=== PATIENT | female | born 1945 | race Caucasian/White ===

== ENCOUNTER 2022-10-25 22:05 | Observation (INO) | payer OTHER, SELFPAY ==
[2022-10-25] VITALS (18 sets, daily range): BP systolic 156–195; BP diastolic 71–90; BMI 29.7
[2022-10-25] MEDS: TYLENOL 1000 MG PO (15:10)
[2022-10-25] MEDS: NORMOSOL-R 1000 IV ×2 (15:10→20:53)
[2022-10-25 15:15] LABS: Hemoglobin 7.5 g/dL (12.0-16.0); Mean Corp Hgb Conc. 28.8 g/dL (33.0-37.0); Mean Corpuscular Hgb 18.8 pg (27.0-31.0); Mean Corpuscular Volume 65.2 fL (81.0-99.0); Mean Platelet Volume 9.2 fL (7.4-10.4); Platelet Count 228 10^3/uL (130-400); Red Blood Cell Count 3.99 10^6/uL (4.20-5.40); Red Cell Dist. Width 19.1 % (11.5-14.5); White Blood Cell Count 3.5 10^3/uL (4.8-10.8)
[2022-10-25 15:33] LABS: Blood Urea Nitrogen 22 mg/dl (7-17); Calcium 8.6 mg/dl (8.4-10.2); Carbon Dioxide 20 mmol/L (22-30); Chloride 109 mmol/L (98-107); Estimated Creatinine Clearance 54 ml/min; Glomerular Filtration Rate > 60.0; Glucose 93 mg/dl (70-99); Potassium 4.2 mmol/L (3.5-5.1); Sodium 138 mmol/L (135-145)
[2022-10-25] MEDS: CLEOCIN 50 IV (16:30)
[2022-10-25] MEDS: ZOFRAN 4 MG IV (18:52)
[2022-10-25] MEDS: XANAX 0.5 MG PO (19:53)
--- NOTE | 2022-10-25 20:43 | HPS.HSE ---
Family Physician
-
Family Physician: INTERVIEWE UNKNOWN - PT NOT
Chief Complaint
-
anxiety
History of Present Illness
77-year-old female with past medical history of anxiety, chronic back pain, constipation, underwent ORIF for left greater tuberosity proximal humerus fracture today. After the surgery she was noted to be hypertensive with shortness of breath. She
was going to be discharged but is staying overnight because of the symptoms. Her systolic blood pressure was as high as 190. Patient states that she did not take her Xanax this morning because of the surgery. While patient was being transferred
from the stretcher to the operating table she developed chest pain. This had subsided after the surgery. Patient states she does have a history of panic attacks. She states that her left lower extremity has been swollen for a while and she saw
vascular who thought this was due to varicose veins.
Medical History
Past Medical History
Past Medical History: Reports Other (anxiety, chronic back pain, constipation, underwent ORIF)
Past Surgical History: Reports None
Social History
Tobacco: Non-smoker
Alcohol: None
Drug: None
Family History
Family History: Not pertinent
Allergies / Home Medications
Allergies reflects when Allergies were last updated in [facility].
Home Medications with original date entered in [facility]
Allergy/Medication List:
Allergies
Allergy/AdvReac Type Severity Reaction Status Date / Time
ibuprofen Allergy Nausea Verified 10/25/22 14:59
Iodinated Contrast Media Allergy HIVES, Verified 10/25/22 14:59
THROAT
SWELLING
Penicillins Allergy HIVES, Verified 10/25/22 14:59
THROAT
SWELLING
shellfish derived Allergy HIVES, Verified 10/25/22 14:59
THROAT
SWELLING
Home Medications
alprazolam 0.5 mg tablet 0.5 mg PO TID Mental Health/Anxiety 07/09/21
citalopram 40 mg tablet 40 mg PO DAILY Mental Health/Anxiety 07/09/21
famotidine 40 mg tablet 40 mg PO DAILYPRN PRN gi/stomach issues 07/09/21
linaclotide 290 mcg capsule (Linzess) 290 mcg PO DAILY GI 07/09/21
oxycodone 15 mg tablet 15 mg PO Q6HPRN PRN moderate to severe pain 07/09/21
docusate sodium 100 mg capsule 100 mg PO BID #60 caps 07/11/21
metoprolol tartrate 25 mg tablet 25 mg PO DAILY 07/11/21
polyethylene glycol 3350 17 gram oral powder packet 17 grams PO DAILY #30 packets 07/11/21
Review of Systems
-
History Source: Patient
A 12 point ROS was completed and negative except as noted: Yes
Constitutional: Reports No Symptoms
EENT: Reports No Symptoms
Respiratory: Reports No Symptoms
Cardiac: Reports No Symptoms
Abdomen/GI: Reports No Symptoms
: Reports No Symptoms
Musculoskeletal: Reports No Symptoms
Skin: Reports No Symptoms
Neurological: Reports No Symptoms
Endocrine: Reports No Symptoms
Hematologic/Lymphatic: Reports No Symptoms
Psych: Reports No Symptoms
Physical Exam
Vital Signs
Vital Signs
Temp Pulse Resp BP Pulse Ox
98.5 F 56 18 176/76 100
10/25/22 18:30 10/25/22 20:30 10/25/22 20:30 10/25/22 20:30 10/25/22 20:30
Physical Exam
General: Well Developed, Well Nourished and No Apparent Distress
HEENT: NormoCephalic, Moist mucous membranes and Atraumatic
Respiratory: Clear
Cardiac: S1/S2 and Regular Rhythm; No Murmur or Rub
GI: Soft, Non Tender, Non Distended and Normal Bowel Sounds; No Organomegaly
Rectal: Deferred by Provider
Musculoskeletal: No Clubbing, No Cyanosis and No Edema
Skin: No Rash
Neuro: Nonfocal/grossly intact
Laboratory Results
-
10/25/22 15:05
10/25/22 15:05
Data Reviewed
-
Lab Data: Labs Reviewed by me
Old Records: Reviewed
Impression/Plan
-
IMPRESSION:
PLAN:
# Hypertensive urgency after ORIF of left upper extremity today likely due to anxiety/IV fluids
-Symptoms improving once patient given Xanax.
-EKG shows sinus bradycardia with premature atrial complexes,
-Recheck EKG and troponin
-Check chest x-ray
-Continue metoprolol
-As needed hydralazine
# Left greater tuberosity proximal humerus fracture status post ORIF
-Tylenol and oxycodone for pain
-Orthopedics following
Left lower extremity swelling
-Can follow-up with vascular as outpatient
# Chronic microcytic anemia
-Hemoglobin 7.5 from 7.9 in June
History of anxiety
-Continue alprazolam, citalopram
Chronic back pain
Constipation
-Continue stool softeners
-Continue Linzess
Full code
DVT prophylaxis-SCDs
regular diet
[2022-10-25 22:02] LABS: Troponin I < 0.012 ng/ml
--- NOTE | 2022-10-25 22:15 | PTCARENOTE ---
Telephone report received from PREBOARDER Claribel @21:00, update received at 21:50 that patient was just bladder scanned for 510mls and catheterized for 400mls; patient arrived in bed from PACU @22:00 with IVF infusing; telemetry placed on patient;
admission history obtained by LUIS Butts.
[2022-10-25] MEDS: DILAUDID 0.25 MG IV (23:42)
[2022-10-25] MEDS: CLEOCIN 56 MG IV (23:51)
[2022-10-26] MEDS: ROXICODONE 10 MG PO ×3 (02:03→11:38)
[2022-10-26 03:00] VITALS: BP 136/65
[2022-10-26] MEDS: PEPCID 40 MG PO (05:47)
[2022-10-26 05:53] LABS: % Basophils 0.3 % (0-2); % Immature Granulocytes 0.5 % (0-0.5); % Lymphocytes 15.1 % (20.5-51.1); % Monocytes 7.6 % (1.7-9.3); % Neutrophils 76.5 % (42.2-75.2); Absolute Monocytes 0.5 10^3/uL (0.1-0.6); Absolute Neutrophils 4.9 10^3/uL (1.4-6.5); Hematocrit 24.6 % (37.0-47.0); Hemoglobin 7.2 g/dL (12.0-16.0); Mean Corp Hgb Conc. 29.3 g/dL (33.0-37.0); Mean Corpuscular Hgb 18.9 pg (27.0-31.0); Mean Corpuscular Volume 64.6 fL (81.0-99.0); Mean Platelet Volume 9.4 fL (7.4-10.4); Nucleated Red Blood Cells % 0 %; Platelet Count 213 10^3/uL (130-400); Red Blood Cell Count 3.81 10^6/uL (4.20-5.40); Red Cell Dist. Width 19.1 % (11.5-14.5); White Blood Cell Count 6.4 10^3/uL (4.8-10.8)
[2022-10-26] MEDS: CLEOCIN 56 MG IV (06:02)
[2022-10-26 06:22] LABS: ALT (SGPT) 17 U/L (0-35); AST (SGOT) 26 U/L (14-36); Albumin 2.8 g/dl (3.5-5.0); Alkaline Phosphatase 91 U/L (38-126); Blood Urea Nitrogen 18 mg/dl (7-17); Calcium 8.1 mg/dl (8.4-10.2); Carbon Dioxide 21 mmol/L (22-30); Chloride 107 mmol/L (98-107); Estimated Creatinine Clearance 61 ml/min; Glomerular Filtration Rate > 60.0; Glucose 102 mg/dl (70-99); Potassium 4.1 mmol/L (3.5-5.1); Sodium 135 mmol/L (135-145); Total Bilirubin 0.4 mg/dl (0.2-1.3); Total Protein 5.1 g/dl (6.3-8.2)
[2022-10-26 07:00] VITALS: BP 172/81
--- NOTE | 2022-10-26 07:48 | W.PN.ORTHO ---
Today's Communication / Plan
-
POD 1 ORIF left proximal humerus fracture under the direction of Dr. Briones (DOS 10/25/2022)
--Immobilization with sling at all times other than for showering. Patient would benefit from abductor pillow sling, I have reached out to nursing about obtaining one of these for her. Patient may perform gentle ROM of wrist and hand. Non-weight
bearing to left upper extremity.
--Recommend ASA 325 mg daily for DVT prophylaxis.
--Continue pain control per primary while admitted. Rx for oxycodone e-prescribed to patient pharmacy for post-operative pain control. Rx for doxycyline 100 mg BID x3 days e-prescribed to patient pharmacy.
--Hgb 7.2 this AM. Minor change from pre-operative hemoglobin. Obed defer to medicine for continued management.
--Discharge once medically stable.
--Please reach out with any additional orthopedic questions or concerns.
Assessment
.
Distal Motor Intact: Yes
Dressing:
Clean, dry and intact.
Plan
.
Surgery / Date: ORIF left proximal humerus, Anali, 10/25/2022
DVT Prophylaxis: Aspirin
Activity:
Out of bed.
PT/OT
Subjective
.
.:
Ina is POD 1 following her ORIF left proximal humerus fracture performed by Dr. Briones. She is resting comfortably in bed this morning, and reports only minimal discomfort in her shoulder present. She reports the nerve block has already begun
to wear off, and only has slight numbness in her thumb and index finger. She denies any chest pain or SOB this morning. She has no questions or concerns at this time.
Vital Signs and Labs
.
Vital Signs and Labs:
Lab Results
10/26/22 04:54
10/26/22 04:54
Temp Pulse Resp BP Pulse Ox
97.6 F 59 18 172/81 96
10/26/22 07:00 10/26/22 07:00 10/26/22 07:00 10/26/22 07:00 10/26/22 07:00
Physical Exam
-
Directed exam of the left upper extremity reveals Aquacel dressing clean, dry and intact. Sling in place. Only mild tenderness to palpation about the shoulder. No tenderness elsewhere in the left upper extremity. Good range of motion of wrist
and hand. Neurovascularly intact distally.
BP elevated, but improved from yesterday.
[2022-10-26] MEDS: CELEXA 40 MG PO (08:54)
[2022-10-26] MEDS: ASPIRIN 325 MG PO (08:54)
[2022-10-26] MEDS: COLACE 100 MG PO (08:54)
[2022-10-26] MEDS: LOPRESSOR 25 MG PO (08:54)
[2022-10-26] MEDS: MIRALAX 17 GRAMS PO (08:55)
[2022-10-26] MEDS: XANAX 0.5 MG PO (08:55)
[2022-10-26] MEDS: MAALOX 30 ML PO (08:58)
[2022-10-26] MEDS: LINZESS 290 MCG PO (09:18)
[2022-10-26 09:24] VITALS: BP 157/72; PULSE 56; O2SAT 94
[2022-10-26 11:10] VITALS: BP 134/64
--- NOTE | 2022-10-26 11:41 | CM ---
Addendum entered by Kiki Doran RN 10/26/22 12:14:
Spoke with [facility] (fax [phone]); they are able to accept the referral for SN/OT.
Original Note:
Patient who is s/p ORIF left proximal humerus fracture. Immobilization with sling. OT recommends HH.
Met with patient who resides with her daughter Beckie and 2 grand-daughters in an apartment with 7 outside stairs with handrails to entrance.
PLOF - independent in ADLs and ambulation without using any assistive device.
DME - [facility]
VN - prior [facility]
PCP - Delio Goldberg
Pharmacy - [facility] would like [facility] at [facility] & [facility]. She is aware they are able to see her.
Her sister will provide transport home today.
Plan home today with [facility], with sling.
[2022-10-26] MEDS: NORMOSOL-R IV (11:42)
--- NOTE | 2022-10-26 14:34 | W.PN.HOSP.TC ---
Today's Communication/Plan
-
d/c home with HH
Assessment / Plan
Assessment / Plan
# Hypertensive urgency after ORIF of left upper extremity today likely due to anxiety/IV fluids
-Symptoms improved after treatment with Xanax
-Maintained on home dose of Lopressor with as needed hydralazine
-EKG/troponin negative and no signs of active ACS
# Left greater tuberosity proximal humerus fracture status post ORIF
-Tylenol and oxycodone for pain
-Cleared by orthopedic surgery for discharge home
-Nonweightbearing on left upper extremity
#Left lower extremity swelling
-Can follow-up with vascular as outpatient
# Chronic microcytic anemia
-Hemoglobin 7.5 from 7.9 in June
#History of anxiety
-Continue alprazolam, citalopram
Chronic back pain
Constipation
-Continue stool softeners
-Continue Linzess
Full code
DVT prophylaxis-SCDs
More than 30 minutes spent in discharge including
Final examination of the patient
Summarizing hospital stay
Instructions for continuing care to all relevant caregivers
Preparation of discharge records, prescriptions, and referral forms
Total time spent (in minutes): 38 mins
Anticipated Discharge: Today
Subjective/Interval History
-
Date of Service: October 26, 2022
Sitting upright comfortably in chair
Complaining of pain in left upper extremity
No other issues
Objective Data
-
Labs:
Laboratory Results
10/26/22
04:54
WBC 6.4
Hgb 7.2 L
Hct 24.6 L
Plt Count 213
Sodium 135
Potassium 4.1
Chloride 107
Carbon Dioxide 21 L
BUN 18 H
Creatinine 0.8
Glucose 102 H
Calcium 8.1 L
Total Bilirubin 0.4
AST 26
ALT 17
Alkaline Phosphatase 91
Vital Signs:
Vital Signs
Temp Pulse Resp BP Pulse Ox
98.8 F 47 18 134/64 98
10/26/22 11:10 10/26/22 11:10 10/26/22 07:00 10/26/22 11:10 10/26/22 11:10
I&O
10/25/22 10/26/22 10/27/22
06:59 06:59 06:59
Intake Total 1542 / 1542 180 / 180
Balance 1542 / 1542 180 / 180
Review of Systems
-
All other systems: Reviewed and negative
Physical Exam
-
General: No Apparent Distress
HEENT: Negative Oxygen
Musculoskeletal: Other (LUE in sling)
Neuro: Awake, Alert, Oriented, No Motor Deficits and Nonfocal/Grossly Intact
--- NOTE | 2022-10-29 18:26 | W.DCSUMMARY ---
Discharge Summary
Discharge Data
Date of Admission: 10/25/22
Date of Discharge: 10/26/22
-
Pending Results: No
Hospital Course
Discharging Physician : Dr Deejay Diaz
Disposition : Home with home care
Primary care physician : Unknown
Principal Discharge diagnosis :
Anxiety episode causing shortness of breath/chest pain
Left proximal humeral fracture post surgical fixation
Chronic Discharge diagnosis :
Chronic microcytic anemia
History of anxiety
Chronic back pain
Constipation
Hospital Course :
Patient is a 77-year-old female with above-mentioned past medical history was admitted to medical services after patient had sudden onset of chest discomfort and shortness of breath. Patient was apparently in hospital for surgical fixation of left
greater tuberosity of proximal humerus fracture. Patient was being released at home and while being transferred to stretcher from operating table patient was started to having chest pain and shortness of breath. Patient was noted to be
hypertensive. Patient was admitted to medical floor under hospitalist service for further evaluation. Patient was provided small amount of Xanax to help symptoms. Rapid evaluation did not suggest of any severe medical abnormality. EKG and
troponin were checked and were negative. Follow-up EKG troponin remained negative. Patient was monitored through the night and did not have any further issues. Patient was discharged home following day with follow-up in orthopedic office
Important imaging findings :
None
Procedure findings :
None
Discharge Plan
-
Patient Disposition: Home with Home Care
Discharge Diagnosis/Procedures: Left femur fracture s/p ORIF
Condition: Critical
Diet: Regular
Activity: Other activity
Additional Activity: Perform gentle range of motion activity of wrist and hand. Non-weight bearing to left upper extremity.
Driving Restrictions: No driving
Bathing Restrictions: OK to Shower
Referrals:
Oumar Briones MD [Active] - in two weeks
UNKNOWN - PT NOT,INTERVIEWE [Family Provider] -
Prescriptions:
New
aspirin 325 mg Tablet
325 mg PO DAILY Qty: 28 0RF
Rx Instructions:
Take for 4 weeks then stop
oxycodone 10 mg Tablet
10 mg PO Q4HPRN PRN (Reason: mod sev pain) Qty: 14 0RF
Continued
citalopram 40 MG tablet
40 mg PO DAILY
famotidine 40 MG tablet
40 mg PO DAILYPRN PRN (Reason: gi/stomach issues)
alprazolam 0.5 MG tablet
0.5 mg PO TID
Patient Comments:
07/09/2021: last filled 06/12/21, 90 tabs for 30 days from [facility]
Linzess 290 MCG capsule
290 mcg PO DAILY
docusate sodium 100 MG capsule
100 mg PO BID Qty: 60 0RF
metoprolol tartrate 25 MG tablet
25 mg PO DAILY 0RF
polyethylene glycol 3350 17 GRAMS powder in packet
17 grams PO DAILY Qty: 30 0RF
Discontinued
oxycodone 15 MG tablet
15 mg PO Q6HPRN PRN (Reason: moderate to severe pain)
Patient Comments:
07/09/2021: last filled 07/09/21, 120 tabs for 30 days from [facility]
Discharge Orders:
Discharge Patient (As Directed); Ordered 10/26/22
Ordered By: Deejay Diaz
Discharge Date and Time
Discharge Date/Time: 10/26/22 13:48
== END 2022-10-26 13:48 | disposition home health service (06) ==
LOC: 2 SOUTH 22:05
PROVIDERS: Hospitalist; ADMITTING PHYSICIAN Orthopaedic Surgery Hand Surgery; ATTENDING PHYSICIAN Hospitalist
DX: S42.252A Displaced fracture of greater tuberosity of left humerus, initial encounter for closed fracture (principal); S46.012A Strain of muscle(s) and tendon(s) of the rotator cuff of left shoulder, initial encounter; I16.0 Hypertensive urgency; I10 Essential (primary) hypertension; W19.XXXA Unspecified fall, initial encounter; R22.42 Localized swelling, mass and lump, left lower limb; D50.9 Iron deficiency anemia, unspecified; K59.00 Constipation, unspecified; G89.29 Other chronic pain; M54.9 Dorsalgia, unspecified; I49.1 Atrial premature depolarization; E66.9 Obesity, unspecified; Z68.29 Body mass index [BMI] 29.0-29.9, adult; F41.9 Anxiety disorder, unspecified
CPT/HCPCS: 23630; 71045; 73030; 76000; 80048; 80053; 84484; 85025; 85027; 93005; 97166; C1713; G0378

== ENCOUNTER 2023-09-02 00:21 | Emergency (ER) | payer OTHER, SELFPAY ==
[2023-09-02 00:25] VITALS: BP 130/69
[2023-09-02 00:30] VITALS: BP 130/69; BMI 31.3
--- NOTE | 2023-09-02 00:40 | ED.GENMED ---
History of Present Illness
General
Chief Complaint: Abdominal Pain
Source: patient
Exam Limitations: none
Time Seen by Provider: 09/02/23 00:25
Nursing documentation reviewed up to this point in time: agreed with
Travel History
Have you had any contact with someone who has COVID-19?: No
Do you have any symptoms of coronavirus? Fever > 100 degrees, chills, cough, shortness of breath, sore throat, loss of taste or smell, muscle aches, or headache?: No
Symptoms:: abdominal pain, constipation
History of Present Illness
History of Present Illness:
Patient presents to ED secondary to persistent lower abdominal pain since early this morning. Abdominal pain described as sharp, nonradiating, without any alleviating or exacerbating factors. Denies fever or chills. Denies trauma. Denies nausea,
vomiting, or diarrhea. Denies loss of appetite. Denies difficulty with urination. Denies back pain. Patient does have history of constipation. Of note, last night, patient reports that she accidentally inserted a small quantity of diclofenac
ointment into her vaginal, instead of flagyl. Pt immediately felt burning sensation, which resolved and she was able to fall asleep. However, when she woke up this morning, abdominal pain started. Pt does have history of constipation, which is
chronic. Last BM one week ago. In addition, pt is s/p hernia repair and abdominoplasty one year ago.
Past History
Past History
ED Past Medical History: GERD, HTN, Hypercholesterolemia and Psychiatric
ED Past Surgical History: , Orthopedic and Other (Ventral hernia repair)
Social History
Tobacco: Non-smoker
Alcohol: None
Drug: None
Review of Systems
Review of Systems
Allergies reviewed?: Yes
Constitutional: Reports no symptoms
ABD/GI: Reports abdominal pain; Denies vomiting or diarrhea
Musculoskeletal: Reports no symptoms
Neurological: Reports no symptoms
Phy Exam
Physical Exam
Physical Exam:
Physical Exam
General: mild distress, not acutely ill. afebrile
Head: nc/at. eomi
Neck: supple. no meningeal signs.
Heart: s1/s2 regular rate and rhythm, no murmur. equal radial pulses.
Lungs: no acute respiratory distress. clear bilaterally
Abdomen: normal bowel sounds. mild LLQ tenderness to palpation, without distention.
Neuro: alert and oriented. no focal neurological deficits
Skin: no rash
Psychiatric: well kept. interactive and cooperative
Extremities: no edema. no calf tenderness.
Course
Orders/Labs/Results
Orders:
Orders
09/02/23 00:42
CT Abd/pel Without Iv Or Oral Urgent
Comment:
Reason For Exam: Left flank/LLQ pain
09/02/23 00:53
Basic Metabolic Panel Urgent
Complete Blood Count/With Diff Urgent
09/02/23 00:57
Urinalysis Reflex To Culture Urgent
Date Specimen was Collected: 09/02/23
Time Specimen was Collected: 00:56
Urine Microscopic Reflex Cult Urgent
Urine Culture Urgent
ALEXEI Source: U
Specimen Description:
Date Specimen was Collected: 09/02/23
Time Specimen was Collected: 00:56
09/02/23 01:35
Type+Screen Urgent
Abnormal Lab Results
09/02/23 09/02/23
00:53 00:57
WBC 4.0 L 10^3/uL
(4.8-10.8)
RBC 3.73 L 10^6/uL
(4.20-5.40)
Hgb 6.8 L* g/dL
(12.0-16.0)
Hct 23.7 L %
(37.0-47.0)
MCV 63.5 L fL
(81.0-99.0)
MCH 18.2 L pg
(27.0-31.0)
MCHC 28.7 L g/dL
(33.0-37.0)
RDW 20.0 H %
(11.5-14.5)
Absolute Lymphs (auto) 1.1 L 10^3/uL
(1.2-3.4)
Monocytes % 9.6 H %
(1.7-9.3)
BUN 31 H mg/dl
(7-17)
Creatinine 1.1 H mg/dL
(0.6-1.0)
Urine Nitrite (Reflex) Positive A
(Negative)
Leukocyte Esterase Rfl 2+ A
(Negative)
Urine RBC 3-6 A /HPF
(0-2)
Urine Bacteria (Reflex) Few A
(Negative)
09/02/23 00:53
09/02/23 00:53
Vital Signs
Initial and Last Documented VS:
Initial Vital Signs
BP Pulse Ox
130/69 95
09/02/23 00:25 09/02/23 00:25
Last Documented Vital Signs
Temp Pulse Resp BP Pulse Ox
97.9 F 57 16 126/74 98
09/02/23 02:19 09/02/23 02:19 09/02/23 02:19 09/02/23 02:19 09/02/23 02:19
MDM/Problems Addressed
MDM/Problems Addressed:
Blood work reviewed, significant for anemia. In reviewing patient's previous blood work over the past couple years, patient has been anemic. When discussed with patient, patient does understand that she does have ongoing anemia, secondary to low
iron level. Iron supplements has been recommended outpatient, which patient has been unable to take due to ongoing constipation. Iron infusion was recommended and had been arranged by her primary care physician. Unfortunately, recently, patient
states that she has not been able to receive IV infusion of iron due to schedule conflicts. Discussed treatment options, including receiving blood transfusion in ED prior to discharge versus urgent outpatient follow-up with her primary care
physician for IV infusion. At this time, patient prefers to go home, but states that she will contact her primary care physician as soon as possible. In the meantime, patient will return to ED with worsening symptoms, i.e. fever/shortness of
breath/dizziness/fatigue/weakness.
*Critical Care Note
Total Time (30-74mins, 75-104mins- exclusive of procedures): Not Applicable
ED Attending Note
-
Portions of this chart may have been created with voice recognition software.� Occasional wrong word or��sound alike� substitutions may have occurred due to the inherent limitations of voice recognition software.
Discharge Plan
Departure
Patient Disposition: Home (Routine Discharge)
Date of Disposition: 09/02/23
Time of Disposition: 02:15
Patient with high blood pressure during this ER visit?: Yes
Discharge Problem:
Abdominal pain, Anemia, Constipation
Instructions: Constipation, Adult ED, Anemia caused by low iron in adults - Discharge instructions, Abdominal Pain
Prescriptions:
No Action
citalopram 40 MG tablet
40 mg PO DAILY
famotidine 40 MG tablet
40 mg PO DAILYPRN PRN (Reason: gi/stomach issues)
alprazolam 0.5 MG tablet
0.5 mg PO TID
Patient Comments:
07/09/2021: last filled 06/12/21, 90 tabs for 30 days from [facility]
Linzess 290 MCG capsule
290 mcg PO DAILY
metoprolol tartrate 25 MG tablet
25 mg PO DAILY 0RF
polyethylene glycol 3350 17 GRAMS powder in packet
17 grams PO DAILY Qty: 30 0RF
oxycodone 10 mg Tablet
10 mg PO Q4HPRN PRN (Reason: mod sev pain) Qty: 14 0RF
docusate sodium 100 MG capsule
100 mg PO BID PRN (Reason: constipation)
Referrals:
Delio Goldberg, [Family Provider] -
Activity Restrictions/Additional Instructions:
As discussed, please follow-up with your primary care physician for reevaluation, including urgent IV infusion as an outpatient, as your blood count appears to be lower than your chronic anemia. Please consider return to ED with worsening symptoms,
i.e. dizziness/fatigue/shortness of breath. In addition, CT scan revealed significant constipation, which may be the source of your discomfort today along with affect from insertion of wrong medication into your pelvic region. Please continue to
utilize outpatient stool regimen, including stool softener and laxatives.
Interventions
Interventions:
*Risk Screen - Suicide Last Done: 09/02/23 00:30
*General Assessment Last Done: 09/02/23 00:30
*Neglect/Abuse Screening Last Done: 09/02/23 00:30
ED- Fall Risk Assessment Last Done: 09/02/23 00:40
*ED COVID-19 Vaccine History Last Done: 09/02/23 00:30
*Nursing Disposition Last Done: 09/02/23 02:45
XZ-Dxuhkn-Tfpndizonp Assessment Last Done: 09/02/23 01:06
Discharge Date and Time
Discharge Date/Time: 09/02/23 02:46
Print Language: KYRGYZ
[2023-09-02 01:11] LABS: % Immature Granulocytes 0.5 % (0-0.5); % Lymphocytes 26.4 % (20.5-51.1); % Monocytes 9.6 % (1.7-9.3); % Neutrophils 60.5 % (42.2-75.2); Absolute Eosinophils 0.1 10^3/uL (0-0.7); Absolute Lymphocytes 1.1 10^3/uL (1.2-3.4); Absolute Monocytes 0.4 10^3/uL (0.1-0.6); Absolute Neutrophils 2.4 10^3/uL (1.4-6.5); Hematocrit 23.7 % (37.0-47.0); Mean Corp Hgb Conc. 28.7 g/dL (33.0-37.0); Mean Corpuscular Hgb 18.2 pg (27.0-31.0); Mean Corpuscular Volume 63.5 fL (81.0-99.0); Mean Platelet Volume 9.2 fL (7.4-10.4); Nucleated Red Blood Cells % 0 %; Platelet Count 207 10^3/uL (130-400); Red Blood Cell Count 3.73 10^6/uL (4.20-5.40)
[2023-09-02 01:21] LABS: Blood Urea Nitrogen 31 mg/dl (7-17); Carbon Dioxide 25 mmol/L (22-30); Chloride 104 mmol/L (98-107); Estimated Creatinine Clearance 44 ml/min; Glucose 96 mg/dl (70-99); Potassium 4.1 mmol/L (3.5-5.1); Sodium 136 mmol/L (135-145); eGFR 52.08
[2023-09-02 01:21] LABS: Urine Albumin Negative (Neg - Trace); Urine Bilirubin Negative (Negative); Urine Character Clear (Clear); Urine Color Yellow; Urine Glucose Negative (Negative); Urine Ketone Negative (Negative); Urine Leukocyte 2+ (Negative); Urine Nitrite Positive (Negative); Urine Occult Blood Negative (Negative); Urine Urobilinogen 1+ (Neg - 1+)
[2023-09-02 01:22] LABS: Hemoglobin 6.8 g/dL (12.0-16.0)
--- NOTE | 2023-09-02 01:30 | EDRN ---
Pt.'s hg. level 6.8. Dr. West aware.
[2023-09-02 01:31] LABS: Urine Squamous Cell >30 /LPF (Few)
[2023-09-02 01:41] LABS: Urine Bacteria Few (Negative)
[2023-09-02 02:19] VITALS: BP 126/74
== END 2023-09-02 02:46 | disposition home or self-care (01) ==
LOC: EMR 00:21
PROVIDERS: EMERGENCY PHYSICIAN Emergency Medicine; FAMILY PHYSICIAN Family Medicine
DX: R10.30 Lower abdominal pain, unspecified (principal); D64.9 Anemia, unspecified; K59.00 Constipation, unspecified; K21.9 Gastro-esophageal reflux disease without esophagitis; I10 Essential (primary) hypertension; E78.00 Pure hypercholesterolemia, unspecified; Z90.49 Acquired absence of other specified parts of digestive tract
CPT/HCPCS: 99284; 74176; 80048; 81003; 81015; 85025; 86850; 86900; 86901; 87086

== ENCOUNTER 2023-09-06 06:30 | Day surgery (SDC) | payer OTHER, SELFPAY ==
[2023-08-29 09:11] VITALS: BMI 30.6
[2023-08-29 09:50] LABS: Hematocrit 26.5 % (37.0-47.0); Hemoglobin 7.5 g/dL (12.0-16.0); Mean Corp Hgb Conc. 28.3 g/dL (33.0-37.0); Mean Corpuscular Hgb 18.3 pg (27.0-31.0); Mean Corpuscular Volume 64.8 fL (81.0-99.0); Mean Platelet Volume 9.1 fL (7.4-10.4); Platelet Count 224 10^3/uL (130-400); Red Blood Cell Count 4.09 10^6/uL (4.20-5.40); Red Cell Dist. Width 20.3 % (11.5-14.5); White Blood Cell Count 3.6 10^3/uL (4.8-10.8)
[2023-08-29 10:21] LABS: Blood Urea Nitrogen 25 mg/dl (7-17); Carbon Dioxide 28 mmol/L (22-30); Chloride 106 mmol/L (98-107); Estimated Creatinine Clearance 47 ml/min; Glucose 93 mg/dl (70-99); Potassium 4.8 mmol/L (3.5-5.1); Sodium 140 mmol/L (135-145); eGFR 58.39
--- NOTE | 2023-08-31 10:51 | PTCARENOTE ---
Hgb 7.5 & eGFR 58.39 collected on 08/29/23; Yolie at 's office was notified.
--- NOTE | 2023-09-01 15:05 | PTCARENOTE ---
Dr. Zelaya made aware of Hgb 7.5, no further action required.
[2023-09-06] VITALS (12 sets, daily range): BP systolic 124–159; BP diastolic 57–75; BMI 30.6
[2023-09-06] MEDS: CELEBREX 200 MG PO (09:09)
[2023-09-06] MEDS: TYLENOL 1000 MG PO (09:09)
[2023-09-06] MEDS: VANCOCIN 200 IV (09:10)
[2023-09-06] MEDS: NORMOSOL-R 1000 IV (09:10)
[2023-09-06] MEDS: ZOFRAN 4 MG IV (12:19)
[2023-09-06] MEDS: COMPAZINE 5 MG IV (12:41)
== END 2023-09-06 14:45 | disposition home or self-care (01) ==
LOC: SDS 06:30
PROVIDERS: ATTENDING PHYSICIAN Orthopaedic Surgery Hand Surgery; REFERRING PHYSICIAN Family Medicine
DX: M75.22 Bicipital tendinitis, left shoulder (principal); M75.112 Incomplete rotator cuff tear or rupture of left shoulder, not specified as traumatic; M25.712 Osteophyte, left shoulder; M75.02 Adhesive capsulitis of left shoulder; Z18.89 Other specified retained foreign body fragments
CPT/HCPCS: 29827; 29826; 20680; 36415; 80048; 85027; 93005; C1713; C1763; C1776

== ENCOUNTER 2023-10-04 15:26 | Emergency (ER) | payer OTHER, SELFPAY ==
[2023-10-04 15:27] VITALS: BP 123/60
--- NOTE | 2023-10-04 15:57 | ED.GENMED ---
History of Present Illness
<Marina Gayle PA-C - Last Filed: 10/04/23 19:49>
General
Chief Complaint: Fall
Source: patient
Exam Limitations: none
Time Seen by Provider: 10/04/23 15:34
Nursing documentation reviewed up to this point in time: agreed with
History of Present Illness
History of Present Illness:
Patient is a 78-year-old female presenting via EMS for evaluation following fall with associated head strike. Patient states that she was walking out to an [employer] car when she tripped on a few sticks falling forward striking her face on the cement
and attempting to catch herself with her right arm. There was no loss of consciousness. 911 was called as she was unable to get up independently. Patient is complaining mostly of significant pain in her right arm. In addition�she does note some
pain in her face and nose. Patient also reports mild headache.
Patient denies any nausea, vomiting, visual changes, neck pain. Patient denies any abdominal pain, chest pain, or shortness of breath. Patient denies any pain in her lower extremities.
Last tetanus shot unknown.
Patient not on any blood thinners.
Past History
<Marina Gayle PA-C - Last Filed: 10/04/23 19:49>
Past History
ED Past Medical History: GERD, HTN, Hypercholesterolemia and Psychiatric
ED Past Surgical History: , Orthopedic and Other (Ventral hernia repair)
Social History
Tobacco: Non-smoker
Alcohol: None
Drug: None
Review of Systems
<DOMINIC Mcmahon Last Filed: 10/04/23 19:49>
Review of Systems
Allergies reviewed?: Yes
All Other Systems: ROS reviewed and negative except as documented in HPI and ROS
Phy Exam
<Marina Gayle PA-C - Last Filed: 10/04/23 19:49>
Physical Exam
Physical Exam:
Vitals: Patient's vital signs are stable. Afebrile
General: Patient is in moderate discomfort due to pain.
Skin: Warm and dry, no rashes or lesions
Head: Normocephalic. Contusions to anterior nose and chin.
Eyes: Sclera nonicteric. EOMs intact. No nystagmus. No evidence of orbital trauma.
Nose: Edema and tenderness of nasal bridge with some deviation to the right. No septal hematoma. No epistaxis.
Throat: Protecting airway
Neck: Normal ROM, no cervical spine tenderness, no meningismus. No midline spinal tenderness
Cardiac: Regular rate and rhythm, no murmurs. No anterior chest wall tenderness
Pulm: Normal respiratory effort, no wheezes, rales, rhonchi heard on exam.
Abdomen: Abdomen soft. No abdominal tenderness. Pelvis stable.
Extremities: Significant tenderness and edema of right wrist with obvious deformity. Mild tenderness of right forearm as well. No break to skin of right upper extremity. Great distal pulses in right upper extremity. Left upper extremity
atraumatic with full range of motion. Great distal pulses in LUE. Ecchymoses to bilateral anterior knee. Otherwise lower extremities atraumatic and nontender full range of motion. Great distal pulses in bilateral lower extremities.
Neuro: AAOx3. CN II-XII intact. No focal neurologic deficits.
Psychiatric: Normal affect.
Course
<Marina Gayle PA-C - Last Filed: 10/04/23 19:49>
Orders/Labs/Results
Orders:
Orders
10/04/23 15:52
CT Facial Bones W/o Iv Contras Urgent
Comment:
Reason For Exam: fall, facial strike
CT Head W/o Iv Contrast Urgent
Comment:
Reason For Exam: fall, facial strike
Cardiac Monitoring- Treatment ONCE
Wrist, Right 2 Views CR [CR Wrist - Right Min 2 Views] Urgent
Comment:
Reason For Exam: fall, right wrist deformity
10/04/23 15:53
CT Cervical Spine W/o Iv Contr Urgent
Comment:
Reason For Exam: fall, face strike
10/04/23 15:55
Fentanyl Citrate/Pf [Sublimaze] 50 mcg IV NOW STA
Tetanus/Diphth/Acelpertussis [Adacel] 0.5 ml IM .ONCE ONE
Forearm, Right 2 View [CR Forearm - Right 2 View] Urgent
Comment:
Reason For Exam: fall
10/04/23 17:58
Alprazolam [Xanax] 0.5 mg PO NOW STA
10/04/23 18:15
Sling Right-Treatment ONCE
Splints/Slings/Crut- Treatment ONCE
Location: Right
Type of Splint: Sugar Ton
10/04/23 18:38
Fentanyl Citrate/Pf [Sublimaze] 50 mcg IV NOW STA
10/04/23 18:39
Fentanyl Citrate/Pf [Sublimaze] 100 mcg .ROUTE .STK-MED ONE
10/04/23 19:09
Oxycodone [Roxicodone] 5 mg PO NOW STA
Vital Signs
Initial and Last Documented VS:
Initial Vital Signs
Temp Pulse Resp BP Pulse Ox
98.2 F 60 18 123/60 97
10/04/23 15:27 10/04/23 15:27 10/04/23 15:27 10/04/23 15:27 10/04/23 15:27
Last Documented Vital Signs
Temp Pulse Resp BP Pulse Ox
98.5 F 59 18 112/70 98
10/04/23 19:32 10/04/23 19:32 10/04/23 19:32 10/04/23 19:32 10/04/23 19:32
<Delio Pugh MD - Last Filed: 10/04/23 18:53>
Orders/Labs/Results
Orders:
Orders
10/04/23 15:52
CT Facial Bones W/o Iv Contras Urgent
Comment:
Reason For Exam: fall, facial strike
CT Head W/o Iv Contrast Urgent
Comment:
Reason For Exam: fall, facial strike
Cardiac Monitoring- Treatment ONCE
Wrist, Right 2 Views CR [CR Wrist - Right Min 2 Views] Urgent
Comment:
Reason For Exam: fall, right wrist deformity
10/04/23 15:53
CT Cervical Spine W/o Iv Contr Urgent
Comment:
Reason For Exam: fall, face strike
10/04/23 15:55
Fentanyl Citrate/Pf [Sublimaze] 50 mcg IV NOW STA
Tetanus/Diphth/Acelpertussis [Adacel] 0.5 ml IM .ONCE ONE
Forearm, Right 2 View [CR Forearm - Right 2 View] Urgent
Comment:
Reason For Exam: fall
10/04/23 17:58
Alprazolam [Xanax] 0.5 mg PO NOW STA
10/04/23 18:15
Sling Right-Treatment ONCE
Splints/Slings/Crut- Treatment ONCE
Location: Right
Type of Splint: Sugar Ton
10/04/23 18:38
Fentanyl Citrate/Pf [Sublimaze] 50 mcg IV NOW STA
10/04/23 18:39
Fentanyl Citrate/Pf [Sublimaze] 100 mcg .ROUTE .STK-MED ONE
10/04/23 19:09
Oxycodone [Roxicodone] 5 mg PO NOW STA
Vital Signs
Initial and Last Documented VS:
Initial Vital Signs
Temp Pulse Resp BP Pulse Ox
98.2 F 60 18 123/60 97
10/04/23 15:27 10/04/23 15:27 10/04/23 15:27 10/04/23 15:27 10/04/23 15:27
Last Documented Vital Signs
Temp Pulse Resp BP Pulse Ox
98.5 F 59 18 112/70 98
10/04/23 19:32 10/04/23 19:32 10/04/23 19:32 10/04/23 19:32 10/04/23 19:32
<Marina Gayle PA-C - Last Filed: 10/04/23 19:49>
MDM/Problems Addressed
Differential Diagnosis Includes:
Not limited to: Wrist fracture, wrist contusion, patient contusion, concussion, nasal fracture, intraparenchymal bleed, cervical spine fracture
MDM/Problems Addressed:
78-year-old female presenting via EMS following mechanical trip and fall with associated head strike. There is no loss of consciousness. Vital signs stable. Physical exam as above. Obvious deformity to right wrist. Mild trauma to face with
notable abrasions to nose and chin. Mild deformity of right nose without any septal hematoma or epistaxis noted. Patient not on any blood thinners. Last tetanus unknown. Will check head CT, facial bone CT, cervical spine CT. Will check x-ray of
right wrist and right forearm. Abdomen soft and nontender. Lungs clear bilaterally. Heart regular rate and rhythm. Patient is confident that this was a trip and fall and not a syncopal event. Will update tetanus and provide pain management.
Will reassess
Head CT shows no acute intracranial abnormalities. Cervical spine CT shows no acute fractures or acute abnormalities. Incidental finding of thyroid mass which patient was made aware of to have followed up outpatient. Patient bone CT does show
small nasal bone fracture and fracture of anterior maxillary spine. Patient will follow-up with ENT.
X-ray does show fracture of right distal wrist. Pictures were sent to orthopedic on-call, Dr. Maharaj who recommended sugar-tong splint and follow-up with outpatient for likely surgical management. Patient was placed in sugar-tong splint and given
right shoulder sling. She will contact orthopedics in the morning for follow-up. Return precautions discussed at length with patient and her daughter. Patient will be discharged home with her daughter.
Chronic conditions affecting care:
N/A
Acute Exacerbation and/or Progression of Chronic Illness:
N/A
<aMrina Gayle PA-C - Last Filed: 10/04/23 19:49>
*Radiology
Radiology exam reviewed: radiology read reviewed
*Pulse Oximetry
Patient hypoxic: no
*EKG
Interpreted by ED Provider?: NA
*[employer] Interpretation
Rate: [employer]- N/A
*Critical Care Note
Total Time (30-74mins, 75-104mins- exclusive of procedures): Not Applicable
ED Attending Note
<Marina Gayle PA-C - Last Filed: 10/04/23 19:49>
-
Portions of this chart may have been created with voice recognition software.� Occasional wrong word or��sound alike� substitutions may have occurred due to the inherent limitations of voice recognition software.
<Delio Pugh MD - Last Filed: 10/04/23 18:53>
ED Attending Note
Patient seen and examined by attending physician: Yes
I performed the substantive portion of visit, reviewed & personally made and approve the management plan that is documented in note by myself or SIMIN.: Yes
ED Attending Note:
Patient tripped and fell. Hitting her nose and breaking her fall with her right arm. No LOC. Complaining of nasal pain. Mild neck pain. Mostly severe right arm pain. No lower extremity issues. Mild contusions to her knees although they feel
superficial per the patient. Last tetanus is unknown.
TRAUMA EXAM:
VITAL SIGNS: Vital signs reviewed, cooperative
DISTRESS: No active disease
EYES: Pupils reactive, no orbital trauma
NOSE: Nasal swelling abrasion and mild deformity. No epistaxis. No hematoma
FACE AND SCALP: No scalp trauma.
NECK: Supple
BACK: Pelvis stable to compression
RESPIRATORY: No distress, no tender chest wall
CARDIAC: No murmur, pulses equal and strong
ABDOMEN: Soft nontender
EXTREMITIES: Deformity of the right wrist with tenderness of the forearm up towards the elbow. No other significant extremity trauma. Mild tenderness over both patellas although stable and able to straight leg raise.
NEUROLOGICAL: Alert, oriented, no motor deficits
PSYCH: Mood affect normal
Impression is clear fracture to the distal right forearm. X-rays pending. Pain management. Tetanus shot. CT head facial and cervical spine.
Orthopedics was contacted. X-ray sent to them. Splint and follow-up this week.
Head medically stable. No open fracture.
Discharge Plan
Departure
Patient Disposition: Home (Routine Discharge)
Date of Disposition: 10/04/23
Time of Disposition: 19:10
Patient with high blood pressure during this ER visit?: No
Condition: Good
Covid-19: Not Applicable
Discharge Problem:
Fall, Fracture, Colles, right, closed, Fracture of nasal bone, Abrasion of face
Instructions: Colles' Fracture (DC), Minor Head Injury, Adult ED, Splint Care ED, Nose Fracture ED
Prescriptions:
New
oxycodone 5 mg tablet
5 mg PO Q8H PRN (Reason: Pain) Qty: 10 0RF
No Action
citalopram 40 MG tablet
40 mg PO DAILY
famotidine 40 MG tablet
40 mg PO DAILYPRN PRN (Reason: gi/stomach issues)
alprazolam 0.5 MG tablet
0.5 mg PO DAILY PRN (Reason: Mental Health/Anxiety)
Patient Comments:
07/09/2021: last filled 06/12/21, 90 tabs for 30 days from [facility]
metoprolol tartrate 25 MG tablet
25 mg PO DAILY 0RF
polyethylene glycol 3350 17 GRAMS powder in packet
17 grams PO DAILY Qty: 30 0RF
oxycodone 15 mg Tablet
15 mg PO Q6H PRN (Reason: pain)
trazodone 100 mg Tablet
100 mg PO HS
docusate sodium 100 MG capsule
100 mg PO BID PRN (Reason: constipation)
Referrals:
Dhiraj Conway MD [Active] - Tomorrow
Robert Vidales MD [Active] - Call in 1-3 days for appt
Delio Goldberg, DO [Family Provider] -
Activity Restrictions/Additional Instructions:
RETURN TO THE EMERGENCY DEPARTMENT WITH ANY SEVERE HEADACHE, FEVERS/CHILLS, INTRACTABLE PAIN, NUMBNESS/TINGLING IN RIGHT UPPER EXTREMITY, WORSENING IN CURRENT SYMPTOMS, OR ANY OTHER CONCERNS
-You should keep right arm elevated and apply ice as often as possible. You should take Tylenol as needed for pain. A prescription for oxycodone has been sent to your pharmacy you can take as needed for severe pain. This may cause drowsiness.
-You should apply ice to your face/nose to limit swelling. Keep abrasions clean and dry. Monitor for signs of infection. You should follow-up with ENT for further evaluation of nasal fracture.
-As discussed that she need to follow-up with orthopedics for further management of fracture of your right wrist. You should contact them first thing in the morning to schedule an appointment. The contact information has been provided for you
above.
-Monitor your symptoms closely do not hesitate to return to the emergency department any acute worsening/new symptoms
Interventions
Interventions:
*Risk Screen - Suicide Last Done: 10/04/23 15:27
*General Assessment Last Done: 10/04/23 15:27
*Neglect/Abuse Screening Last Done: 10/04/23 15:27
ED- Fall Risk Assessment Last Done: 10/04/23 15:40
*Nursing Disposition Last Done: 10/04/23 19:33
ED-Musculoskeletal Assessment Last Done: 10/04/23 15:40
ED- Neurological Assessment Last Done: 10/04/23 15:40
ED-Skin Assessment Last Done: 10/04/23 15:40
Discharge Date and Time
Discharge Date/Time: 10/04/23 19:33
Print Language: BANGLADESHI
[2023-10-04] MEDS: SUBLIMAZE 50 MCG IV ×2 (16:00→18:41)
[2023-10-04 16:03] VITALS: BMI 32.6
[2023-10-04] MEDS: ADACEL 0.5 ML IM (16:06)
[2023-10-04 18:00] VITALS: BP 119/80
[2023-10-04] MEDS: XANAX 0.5 MG PO (18:07)
[2023-10-04] MEDS: ROXICODONE 5 MG PO (19:13)
[2023-10-04 19:32] VITALS: BP 112/70
== END 2023-10-04 19:33 | disposition home or self-care (01) ==
LOC: EMR 15:26
PROVIDERS: EMERGENCY PHYSICIAN Emergency Medicine; FAMILY PHYSICIAN Family Medicine
DX: S02.2XXA Fracture of nasal bones, initial encounter for closed fracture (principal); S52.531A Colles' fracture of right radius, initial encounter for closed fracture; S52.611A Displaced fracture of right ulna styloid process, initial encounter for closed fracture; S52.571A Other intraarticular fracture of lower end of right radius, initial encounter for closed fracture; S00.33XA Contusion of nose, initial encounter; S00.83XA Contusion of other part of head, initial encounter; S80.02XA Contusion of left knee, initial encounter; S80.01XA Contusion of right knee, initial encounter; S00.81XA Abrasion of other part of head, initial encounter; R51.9 Headache, unspecified; W01.0XXA Fall on same level from slipping, tripping and stumbling without subsequent striking against object, initial encounter; Y93.01 Activity, walking, marching and hiking; Z23 Encounter for immunization; K58.9 Irritable bowel syndrome, unspecified; M19.90 Unspecified osteoarthritis, unspecified site; F41.9 Anxiety disorder, unspecified; F32.A Depression, unspecified; I10 Essential (primary) hypertension; E78.00 Pure hypercholesterolemia, unspecified; G62.9 Polyneuropathy, unspecified; I48.91 Unspecified atrial fibrillation; K21.9 Gastro-esophageal reflux disease without esophagitis; Z96.651 Presence of right artificial knee joint; Z87.891 Personal history of nicotine dependence; Z98.84 Bariatric surgery status; Z90.49 Acquired absence of other specified parts of digestive tract; Z88.8 Allergy status to other drugs, medicaments and biological substances; Z88.6 Allergy status to analgesic agent; Z88.1 Allergy status to other antibiotic agents; Z91.041 Radiographic dye allergy status; Z88.0 Allergy status to penicillin; Z91.013 Allergy to seafood
CPT/HCPCS: 99285; 96374; 90471; 96376; 29125; 70450; 70486; 72125; 73090; 73100; 90715

== ENCOUNTER → 2023-10-16 06:43 | Day surgery (SDC) | payer OTHER, SELFPAY ==
[2023-10-16] VITALS (15 sets, daily range): BP systolic 115–172; BP diastolic 58–150
--- NOTE | 2023-10-16 07:57 | PTCARENOTE ---
Patients 10/12 Hgb 7.[address] Yolie @ Dr. Collins office notified
[2023-10-16] MEDS: TYLENOL 1000 MG PO (15:24)
[2023-10-16] MEDS: CELEBREX 200 MG PO (15:27)
[2023-10-16] MEDS: ZOFRAN 4 MG IV (17:43)
[2023-10-16] MEDS: SUBLIMAZE 50 MCG IV (17:45)
[2023-10-16] MEDS: DEMEROL 12.5 MG IV (17:52)
[2023-10-16] MEDS: DILAUDID 0.5 MG IV ×3 (18:05→18:31)
[2023-10-16] MEDS: ROXICODONE 10 MG PO (19:17)
== END ==
LOC: SDS 06:43
PROVIDERS: ATTENDING PHYSICIAN Orthopaedic Surgery Hand Surgery
DX: S52.501A Unspecified fracture of the lower end of right radius, initial encounter for closed fracture (principal); X58.XXXA Exposure to other specified factors, initial encounter
CPT/HCPCS: 25607; 86850; 86900; 86901; C1713

== ENCOUNTER 2023-12-23 08:48 | Inpatient (IN) | payer OTHER, SELFPAY ==
[2023-12-22] VITALS (8 sets, daily range): BP systolic 146–175; BP diastolic 63–83; BMI 29.2
--- NOTE | 2023-12-22 18:29 | ED.GENMED ---
History of Present Illness
General
Chief Complaint: Abdominal Pain
Source: patient
Exam Limitations: none
Time Seen by Provider: 12/22/23 18:10
Nursing documentation reviewed up to this point in time: agreed with
History of Present Illness
History of Present Illness:
78-year-old female presents to the ER for evaluation of constipation and abdominal pain. She has not moved her bowels in 6 days. She does normally use chronic narcotics for back pain however reports her pain medicines 'went missing' (along with
xanax) since last weekend and she has not had any narcotics. She reports she has had bowel obstruction in the past structure. She does not feel that stools in the rectum. She has been using Dulcolax MiraLAX and stool softeners without any
relief. She is nauseous when she tries to move her bowels. 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 In addition pt reports she is fatigued. She has been told she is anemia and 'lost a prescription to
get a transfusion' which was given to her by GI DR Russo.
She denies any rectal bleeding or dark stools.
In addition patient feels that she may have a UTI she has had some urinary urgency and dysuria denies any fever or chills.
Past History
Past History
ED Past Medical History: GERD, HTN, Hypercholesterolemia and Psychiatric
ED Past Surgical History: , Orthopedic and Other (Ventral hernia repair)
Social History
Tobacco: Non-smoker
Alcohol: None
Drug: None
Review of Systems
Review of Systems
Allergies reviewed?: Yes
All Other Systems: ROS reviewed and negative except as documented in HPI and ROS
Constitutional: Reports no symptoms; Denies fever, fatigue or chills
Respiratory: Reports no symptoms
Cardiac: Reports no symptoms
ABD/GI: Reports abdominal pain, nausea and constipated; Denies vomiting, diarrhea, bloody stools or black stools
: Reports dysuria and urgency
Musculoskeletal: Reports back pain (chronic back pain )
Skin: Reports no symptoms
Neurological: Reports no symptoms
Psychiatric: Reports no symptoms
Phy Exam
General Physical Exam
General Presentation: no apparent distress
General age: appears stated age
General Skin: warm and dry
General Habitus: normal
General Mental: alert
General Hydration: appears well hydrated
Cardiovascular Exam
Cardiovascular Exam: regular rate/rhythm, no murmur and normal peripheral pulses
Pulmonary Exam
Pulmonary Exam: lungs clear and no respiratory distress
Gastrointestinal Exam
Gastrointestinal Exam: soft and other (Left side abdominal tenderness positive bowel sounds rectal exam no stool in rectum)
Neurological Exam
Neurological Exam: alert and oriented x3
Musculoskeletal Exam
Musculoskeletal Exam: full ROM
Skin Exam
Skin Exam: normal color and warm/dry
Psychiatric Exam
Psychiatric Exam: normal mood/affect
Course
Orders/Labs/Results
Orders:
Orders
12/22/23 18:25
Iohexol [Omnipaque] See Protocol PO NOW STA
12/22/23 18:28
CT Abd/pel (oral only)-DH Only Urgent
Comment:
Reason For Exam: constipation /abdominal pain
12/22/23 18:34
0.9% Sodium Chloride 1000 ml [Nss] 1,000 ml IV BOLUS
12/22/23 18:57
Complete Blood Count/With Diff Urgent
Comprehensive Metabolic Panel Urgent
Lipase Urgent
12/22/23 19:51
HYDROmorphone [Dilaudid] 0.5 mg IV NOW STA
12/22/23 22:58
Urinalysis Reflex To Culture Urgent
Date Specimen was Collected: 12/22/23
Time Specimen was Collected: 22:37
Urine Microscopic Reflex Cult Urgent
Urine Culture Urgent
ALEXEI Source: U
Specimen Description:
Date Specimen was Collected: 12/22/23
Time Specimen was Collected: 22:37
12/22/23 23:58
CefTRIAXone [Rocephin] 1,000 mg IV NOW STA
Abnormal Lab Results
12/22/23 12/22/23
18:57 22:58
WBC 3.5 L 10^3/uL
(4.8-10.8)
RBC 3.92 L 10^6/uL
(4.20-5.40)
Hgb 7.1 L g/dL
(12.0-16.0)
Hct 24.3 L %
(37.0-47.0)
MCV 62.0 L fL
(81.0-99.0)
MCH 18.1 L pg
(27.0-31.0)
MCHC 29.2 L g/dL
(33.0-37.0)
RDW 19.7 H %
(11.5-14.5)
Absolute Lymphs (auto) 1.1 L 10^3/uL
(1.2-3.4)
Chloride 109 H mmol/L
(98-107)
Carbon Dioxide 20 L mmol/L
(22-30)
BUN 24 H mg/dl
(7-17)
Total Protein 6.0 L g/dl
(6.3-8.2)
Urine Nitrite (Reflex) Positive A
(Negative)
Urine Bilirubin 2+ A
(Negative)
Urine Urobilinogen 3+ A
(Neg - 1+)
Leukocyte Esterase Rfl Trace A
(Negative)
Urine Bacteria (Reflex) Moderate A
(Negative)
12/22/23 18:57
12/22/23 18:57
Vital Signs
Initial and Last Documented VS:
Initial Vital Signs
Temp Pulse Resp BP Pulse Ox
98.1 F 67 18 146/79 100
12/22/23 17:17 12/22/23 17:17 12/22/23 17:17 12/22/23 17:17 12/22/23 17:17
Last Documented Vital Signs
Temp Pulse Resp BP Pulse Ox
98.1 F 55 18 156/66 95
12/22/23 17:17 12/22/23 22:19 12/22/23 18:20 12/22/23 22:50 12/22/23 22:51
MDM/Problems Addressed
Differential Diagnosis Includes:
Not limited constipation bowel obstruction anemia UTI dehydration
MDM/Problems Addressed:
Patient is a 78 yr old female who presents from home for evaluation of abdominal pain. Patient is constipated and has not moved her bowels the past 6 days despite trying uepo-gzo-aallwtx meds. She normally on chronic narcotics for chronic pain but
is not had narcotics in the past week because she reports they went missing. Patient presents today with complaints of constipation fatigue known to be anemic and concerned about UTI. On exam patient is in no acute distress abdomen soft no stool
in rectum. CAT scan done and does show moderate to mild gaseous distention of the colon especially over the transverse colon and proximal to mid ascending colon findings are most likely an adynamic ileus: Obstruction is less likely no free air.
Patient complains of consistent fatigue and does have a diagnosis of anemia. Hemoglobin today is 7.1(pt 's baseline around 7) .
*Radiology
Radiology exam reviewed: radiology read reviewed
*Pulse Oximetry
Patient hypoxic: no
*Critical Care Note
Total Time (30-74mins, 75-104mins- exclusive of procedures): Not Applicable
ED Attending Note
-
Portions of this chart may have been created with voice recognition software.� Occasional wrong word or��sound alike� substitutions may have occurred due to the inherent limitations of voice recognition software.
Discharge Plan
Departure
Patient Disposition: Admit
Date of Disposition: 12/22/23
Time of Disposition: 23:59
Admit to: Med/Surg
Admit to doctor: hospitalist
Presentation/result/management discussed w/ accepting MD/DO: Hospitalist
Patient with high blood pressure during this ER visit?: Yes
Condition: Fair
Covid-19: Not Applicable
Discharge Problem:
Acute constipation, Fatigue, Acute UTI
Prescriptions:
No Action
citalopram 40 MG tablet
40 mg PO QPM
famotidine 40 MG tablet
40 mg PO DAILYPRN PRN (Reason: gi/stomach issues)
alprazolam 0.5 MG tablet
0.5 mg PO TIDPRN PRN (Reason: Mental Health/Anxiety)
Patient Comments:
12/22/2023: last filled 10/16/23, 270 tabs for 90 days from [facility]
polyethylene glycol 3350 17 GRAMS powder in packet
17 grams PO DAILY Qty: 30 0RF
oxycodone 15 mg Tablet
15 mg PO Q6HPRN PRN (Reason: moderate pain)
Patient Comments:
12/22/2023: last filled 12/15/23, 120 tabs for 30 days from [facility]
trazodone 100 mg Tablet
100 mg PO HS
docusate sodium 100 MG capsule
100 mg PO BIDPRN PRN (Reason: constipation)
cholecalciferol (vitamin D3) [Vitamin D3] 25 mcg (1,000 unit) Tablet
25 mcg PO DAILY
mecobalamin (vitamin B12) [B12 Active] 1,000 mcg Tablet,Chewable
1,000 mcg PO DAILY
magnesium
1 tab PO DAILY
tizanidine 2 mg tablet
2 mg PO BIDPRN PRN (Reason: muscle spasms)
hydrochlorothiazide 25 mg tablet
25 mg PO DAILY
ondansetron 4 mg tablet,disintegrating
4 mg PO Q6HPRN PRN (Reason: nausea/vomiting)
metoprolol tartrate 25 MG tablet
25 mg PO QPM
Referrals:
UNKNOWN - PT NOT,INTERVIEWE [Family Provider] -
Interventions
Interventions:
*Risk Screen - Suicide Last Done: 12/22/23 17:20
*General Assessment Last Done: 12/22/23 17:20
*Neglect/Abuse Screening Last Done: 12/22/23 17:20
*ED COVID-19 Vaccine History Last Done: 12/22/23 17:20
BE-Orwyir-Wckkxibsyz Assessment Last Done: 12/22/23 17:28
Discharge Date and Time
Print Language: ANGOLAN
[2023-12-22] MEDS: NSS 1000 IV (18:57)
[2023-12-22 19:11] LABS: % Basophils 0.6 % (0-2); % Immature Granulocytes 0.3 % (0-0.5); % Lymphocytes 29.9 % (20.5-51.1); % Monocytes 8.3 % (1.7-9.3); % Neutrophils 58.9 % (42.2-75.2); Absolute Eosinophils 0.1 10^3/uL (0-0.7); Absolute Lymphocytes 1.1 10^3/uL (1.2-3.4); Absolute Monocytes 0.3 10^3/uL (0.1-0.6); Absolute Neutrophils 2.1 10^3/uL (1.4-6.5); Hematocrit 24.3 % (37.0-47.0); Hemoglobin 7.1 g/dL (12.0-16.0); Mean Corp Hgb Conc. 29.2 g/dL (33.0-37.0); Mean Corpuscular Hgb 18.1 pg (27.0-31.0); Mean Platelet Volume 9.4 fL (7.4-10.4); Nucleated Red Blood Cells % 0 %; Platelet Count 203 10^3/uL (130-400); Red Blood Cell Count 3.92 10^6/uL (4.20-5.40); Red Cell Dist. Width 19.7 % (11.5-14.5); White Blood Cell Count 3.5 10^3/uL (4.8-10.8)
[2023-12-22 19:22] LABS: ALT (SGPT) 17 U/L (0-35); AST (SGOT) 22 U/L (14-36); Albumin 3.8 g/dl (3.5-5.0); Alkaline Phosphatase 79 U/L (38-126); Blood Urea Nitrogen 24 mg/dl (7-17); Calcium 9.3 mg/dl (8.4-10.2); Carbon Dioxide 20 mmol/L (22-30); Chloride 109 mmol/L (98-107); Estimated Creatinine Clearance 46 ml/min; Glucose 88 mg/dl (70-99); Lipase 83 U/L (23-300); Potassium 4.5 mmol/L (3.5-5.1); Sodium 140 mmol/L (135-145); Total Bilirubin 0.7 mg/dl (0.2-1.3); eGFR 58.39
[2023-12-22] MEDS: DILAUDID 0.5 MG IV (20:05)
[2023-12-22] MEDS: OMNIPAQUE 50 ML PO (20:05)
[2023-12-22 23:06] LABS: Urine Albumin Negative (Neg - Trace); Urine Bilirubin 2+ (Negative); Urine Character Clear (Clear); Urine Glucose Negative (Negative); Urine Ketone Negative (Negative); Urine Leukocyte Trace (Negative); Urine Nitrite Positive (Negative); Urine Occult Blood Negative (Negative); Urine Specific Gravity 1.015 (<1.030); Urine Urobilinogen 3+ (Neg - 1+)
[2023-12-22 23:11] LABS: Urine Color Orange
[2023-12-22 23:54] LABS: Urine Squamous Cell >30 /LPF (Few)
[2023-12-22 23:55] LABS: Urine Bacteria Moderate (Negative); Urine Mucus Moderate
[2023-12-22 23:56] LABS: Urine Red Blood Cell 0-2 /HPF (0-2)
[2023-12-23] VITALS: BP 150/74
[2023-12-23] MEDS: ROCEPHIN 1000 MG IV ×2 (00:29→10:45)
--- NOTE | 2023-12-23 00:33 | HPS.HSE ---
Family Physician
-
Family Physician: INTERVIEWE UNKNOWN - PT NOT
Chief Complaint
-
Abd Pain, Constipation
History of Present Illness
Patient is a 78y F with PMH significant for chronic pain syndrome on chronic narcotics who presents to ED complaining of lower abdominal pain and constipation. Patient states that she last had a BM about 5-6 days ago. At that time she states
the stool was very hard and she had to strain. Since that time she has developed LLQ abdominal pain that has gradually increased. She also notes urinary frequency and some dysuria. No fevers or chills. No N/V. No chest pain, dyspnea, etc.
Patient is followed by [facility] and is on chronic oxycodone and alprazolam. She received her last Rx of oxycodone on 12/14 and notes that it has since gone missing somehow.
She has been without her usual pain medications for the past several days.
Medical History
Past Medical History
Past Medical History: Reports Other
Additional Past Medical History:
Chronic Pain Syndrome
Chronic Opioid Dependence
Anxiety / Depression
Hypertension
Iron Deficiency Anemia
Obesity s/p Bariatric Surgery
GERD
Past Surgical History: Reports Other
Additional Past Surgical History:
Roberto en Y Gastric Bypass
Ventral Herniorrhaphy
Ovarian Cystectomy
Microdiscectomy
Abdominoplasty
Right Wrist ORIF
Right Femur ORIF
Bilateral TKA
Social History
Tobacco: Former Smoker (Quit smoking in 1985. Approx 20 pack years total use.)
Alcohol: Occasional (Rare.)
Drug: None
Family History
Family History: Not pertinent
Allergies / Home Medications
Allergies reflects when Allergies were last updated in [facility].
Home Medications with original date entered in [facility]
Allergy/Medication List:
Allergies
Allergy/AdvReac Type Severity Reaction Status Date / Time
amoxicillin Allergy HIVES, Verified 12/23/23 00:28
THROAT
SWELLING
ibuprofen Allergy nausea and Verified 12/23/23 00:28
stomach
pain
Iodinated Contrast Media Allergy HIVES, Verified 12/23/23 00:28
THROAT
SWELLING
iodine Allergy HIVES, Verified 12/23/23 00:28
THROAT
SWELLING
Penicillins Allergy HIVES, Verified 12/23/23 00:28
THROAT
SWELLING
shellfish derived Allergy HIVES, Verified 12/23/23 00:28
THROAT
SWELLING
Home Medications
alprazolam 0.5 mg tablet 0.5 mg PO TIDPRN PRN Mental Health/Anxiety 07/09/21
citalopram 40 mg tablet 40 mg PO QPM Mental Health/Anxiety 07/09/21
famotidine 40 mg tablet 40 mg PO DAILYPRN PRN gi/stomach issues 07/09/21
polyethylene glycol 3350 17 gram oral powder packet 17 grams PO DAILY #30 packets 07/11/21
docusate sodium 100 mg capsule 100 mg PO BIDPRN PRN constipation 09/02/23
oxycodone 15 mg tablet 15 mg PO Q6HPRN PRN moderate pain 09/05/23
trazodone 100 mg tablet 100 mg PO HS 09/05/23
cholecalciferol (vitamin D3) 25 mcg (1,000 unit) tablet (Vitamin D3) 25 mcg PO DAILY 10/13/23
magnesium 1 tab PO DAILY 10/13/23
mecobalamin (vitamin B12) 1,000 mcg chewable tablet (B12 Active) 1,000 mcg PO DAILY 10/13/23
hydrochlorothiazide 25 mg tablet 25 mg PO DAILY 12/22/23
metoprolol tartrate 25 mg tablet 25 mg PO QPM 12/22/23
ondansetron 4 mg disintegrating tablet 4 mg PO Q6HPRN PRN nausea/vomiting 12/22/23
tizanidine 2 mg tablet 2 mg PO BIDPRN PRN muscle spasms 12/22/23
Review of Systems
-
History Source: Patient
A 12 point ROS was completed and negative except as noted: Yes
Constitutional: Denies Fever or Chills
Respiratory: Denies Cough or Trouble Breathing
Cardiac: Denies Chest Pain or Palpitations
Abdomen/GI: Reports Abdominal Pain and Constipated; Denies Nausea, Vomiting, Diarrhea, Bloody Stools or Black Stools
: Reports Dysuria, Frequency and Urgency; Denies Flank Pain or Incontinence
Musculoskeletal: Denies Joint Pain or Edema
Neurological: Denies Dizzy or Headache
Psych: Denies Depression or Anxiety
Physical Exam
Vital Signs
Vital Signs
Temp Pulse Resp BP Pulse Ox
98.1 F 55 18 150/74 96
12/22/23 17:17 12/22/23 22:19 12/22/23 18:20 12/23/23 00:00 12/23/23 00:15
Physical Exam
General: Other (78y F in no acute distress.)
HEENT: Moist mucous membranes and PERRLA
Respiratory: Clear; No Wheezes, Rales or Rhonchi
Cardiac: S1/S2 and Regular Rhythm; No Murmur
GI: Soft, Non Distended, Normal Bowel Sounds and Other (Tenderness diffusely - mostly in the L abdomen. Pos bowel sounds. Pos voluntary guarding.)
Musculoskeletal: No Clubbing, No Cyanosis and No Edema
Neuro: AO x 3
Laboratory Results
-
12/22/23 18:57
12/22/23 18:57
Laboratory Results
Total Bilirubin 0.7 mg/dl (0.2-1.3) 12/22/23 18:57
AST 22 U/L (14-36) 12/22/23 18:57
ALT 17 U/L (0-35) 12/22/23 18:57
Alkaline Phosphatase 79 U/L (38-126) 12/22/23 18:57
Lipase 83 U/L (23-300) 12/22/23 18:57
Impression/Plan
-
A/P: Patient is a 78y F with PMH significant for chronic pain and chronic opioid dependence who presents to ED complaining of abdominal pain and constipation.
Acute on Chronic Constipation / OIC
Abdominal Pain secondary to the above
- Observe overnight for further evaluation and treatment.
- Increase bowel regimen and follow for clinical results / improvement.
- Consider GI evaluation if symptoms do not improve.
- Try to minimize narcotic treatment to avoid constipation.
- Follow for clinical improvement.
Chronic Pain Syndrome
Chronic Opioid Dependence
- Followed by [facility].
- PDMP reviewed and show oxycodone IR 15mg # 120 written on 12/15/23.
- Patient notes that her pills appear to be missing - will need to follow-up with usual Pain Management after discharge in this regard.
- Continue usual meds during inpatient stay - PRN / try to minimize use.
Microcytic Anemia
History of Gastric Bypass
- Stable. Hgb is at / near noted baseline.
- Check iron studies.
- Ferrlicit dose x 1 for now.
- Avoid oral iron preparations due to constipation.
- Follow H&H for changes.
Benign Hypertension
- Stable. Continue metoprolol. Hold HCTZ for now.
- Adjust meds as needed for adequate BP control.
Urinary Symptoms
- Patient describes urinary urgency and dysuria.
- ? due to constipation. UA with paucity of WBCs.
- Observe off of further abx pending culture data.
Anxiety / Depression
- Continue Celexa.
- Continue alprazolam for now - would follow-up with OP providers re: chronic combination opioids and BZDs.
DVT Prophylaxis: Lovenox
Code Status: Full
[2023-12-23] MEDS: ROXICODONE 10 MG PO ×3 (01:30→16:05)
[2023-12-23 02:18] VITALS: BMI 29.2
[2023-12-23 02:38] VITALS: BP 163/71
[2023-12-23] MEDS: XANAX 0.5 MG PO ×2 (02:47→20:58)
[2023-12-23] MEDS: NSS 1000 IV ×2 (02:51→19:36)
[2023-12-23] MEDS: COMPAZINE 5 MG IV ×2 (02:52→16:04)
[2023-12-23 07:14] LABS: Hematocrit 23.7 % (37.0-47.0); Hemoglobin 6.9 g/dL (12.0-16.0); Mean Corp Hgb Conc. 28.4 g/dL (33.0-37.0); Mean Corpuscular Hgb 18.7 pg (27.0-31.0); Mean Corpuscular Volume 65.9 fL (81.0-99.0); Mean Platelet Volume 9.3 fL (7.4-10.4); Platelet Count 175 10^3/uL (130-400); Red Blood Cell Count 3.69 10^6/uL (4.20-5.40); Red Cell Dist. Width 19.6 % (11.5-14.5); White Blood Cell Count 2.7 10^3/uL (4.8-10.8)
--- NOTE | 2023-12-23 07:23 | PTCARENOTE ---
Patient received from ED via wheelchair. She walked to bed with Ax1. She was oriented to room and surroundings. IVF as ordered. Plan of care reviewed. Patient tearful and anxious. Xanax per prn order. Patient slept after but is easily
arousable. Ambulated to bathroom to void x 2. HRR, breath sounds are CTA b/l. Abdomen tender left side, round and full. No BM this shift.
[2023-12-23 07:31] LABS: Blood Urea Nitrogen 18 mg/dl (7-17); Calcium 8.9 mg/dl (8.4-10.2); Carbon Dioxide 22 mmol/L (22-30); Chloride 110 mmol/L (98-107); Estimated Creatinine Clearance 51 ml/min; Glucose 87 mg/dl (70-99); Iron 22 ug/dl (37-170); Magnesium 1.8 mg/dl (1.6-2.3); Potassium 4.5 mmol/L (3.5-5.1); Sodium 142 mmol/L (135-145); eGFR > 60.00
[2023-12-23 07:40] LABS: Percent Saturation 5 % (20-50); Total Iron Binding Capacity 379 ug/dl (265-497)
[2023-12-23 07:43] LABS: LDH 148 U/L (120-246)
[2023-12-23 07:55] LABS: TSH Reflex To Free T4 3.52 uIU/ml (0.47-4.68)
[2023-12-23 08:00] VITALS: BP 128/66
[2023-12-23 08:17] LABS: Reticulocyte Count 1.1 % (0.4-2.8)
[2023-12-23] MEDS: COLACE 100 MG PO (08:30)
[2023-12-23] MEDS: PROTONIX IV 40 MG IV (08:33)
[2023-12-23] MEDS: NSS (PRESERVATIVE FREE) 10 ML IV (08:43)
[2023-12-23] MEDS: SENOKOT-S 1 TABLET PO (08:43)
--- NOTE | 2023-12-23 08:47 | W.PN.HOSP.TC ---
Today's Communication/Plan
-
XR abd
transfuse 1 unit PRBC
laxatives
GI consult
Ceftriaxone
Assessment / Plan
Assessment / Plan
78yo F with chronic back pain on opioids, followed by spinal specialist, hxof hemorrhoids, single instance of afib, HLD, chronic constipation, Hx of gastric bypass with PASCUAL came with 1 week of constipation with initial hard stool. CT abd showed
large stool burden
A/P:
#Acute on chronic constipation
Gavilax
Senna/docusate
GI consult
XR abd to eval that contrast progressed
TSH and electrolytes WNL
#symptomatic PASCUAL
#chronic leukopenia
#Hx of gastric bypass
supect malabsorption
Might benefit from outpatient [facility]
patient had Rx for outpatient iron IV infusion by GI, but did not do it yet
IV iron
Transfuse to keep Hgb>7 as patient feeling fatigue and Hgb 6.9 - 1 unit PRBC on 12/23/23
#UTI with dysuria
CT without hydronephrosis
Ceftriaxone (tolerated dose in ED)
follow Ucx
#Chronic back pain
#DJD
no worsening symptoms over past week, no recent back trauma
cont home meds, cont to folow in [facility] loan documentation specialist office
no urinary retention or incontinence reported
#Chronic CBD dilation 2/2 Hx of cholecystectomy
No f/u advised
#Essential HTN
cont home meds
DVt ppx on Lovenox
Full code
I have spent at least 58min reviewing the chart, test results, communication with consultants and direct patient care
Anticipated Discharge: 24 - 48 hours
Subjective/Interval History
-
Date of Service: December 23, 2023
Objective Data
-
Labs:
Laboratory Results
12/23/23 12/23/23
06:43 06:44
WBC 2.7 L
Hgb 6.9 L*
Hct 23.7 L
Plt Count 175
Sodium 142
Potassium 4.5
Chloride 110 H
Carbon Dioxide 22
BUN 18 H
Creatinine 0.9
Glucose 87
Calcium 8.9
Vital Signs:
Vital Signs
Temp Pulse Resp BP Pulse Ox
98.3 F 57 16 163/71 97
12/23/23 02:30 12/23/23 02:38 12/23/23 02:30 12/23/23 02:38 12/23/23 02:30
I&O
12/22/23 12/23/23 12/24/23
06:59 06:59 06:59
Intake Total 470 / 470
Balance 470 / 470
Review of Systems
-
History Source: Patient
All other systems: Reviewed and negative
Abdomen/GI: Reports Abdominal Pain and Constipated
Physical Exam
-
General: No Apparent Distress and Comfortable
Respiratory: Clear to Auscultation
Cardiac: Regular Rhythm
GI: Tender and Distended
Musculoskeletal: No Clubbing, No Cyanosis and No Edema
Neuro: Awake, Alert, Oriented and AO x 3
Psych: Calm
--- NOTE | 2023-12-23 10:25 | CON.GI ---
Consultation
-
Date/Time Consultation Requested: 12/23/2023
Date/Time Consultation Performed: 12/23/2023
Requesting Provider: Hospitalist
Performing Provider: Ibrahima
Reason for Consultation: Constipation
Medical History
Chief Complaint / HPI
Chief Complaint: Left lower quadrant pain and constipation
History of Present Illness:
Ina is a 78-year-old female with history of reflux on occasional Pepcid, history of Roberto-en-Y gastric bypass in 2004, chronic constipation on chronic narcotics, microcytic anemia, hypertension hyperlipidemia who also underwent a ventral hernia
repair in 2021 along with an abdominoplasty. She is again admitted for similar picture of left lower quadrant pain, severe constipation. In June 2022 she was admitted to [place] with stercoral proctitis thought to be secondary to opiate
induced constipation.
she is well-known to Dr. Russo here and at her prior practice. She had an endoscopy and a colonoscopy in 2014 and again in 2018 that I reviewed the records outpatient. As expected RYGB anatomy and couple of small polyps in the colon and
diverticulosis. Colonoscopy most recently in February 2023 failed twice due to inadequate prep.
She also has significant iron deficiency anemia who is intolerant of oral iron due to her significant constipation and has not received IV iron.
I reviewed her outpatient records which show a couple of no-shows or cancellations.
She does describe some mild reflux symptoms takes Pepcid as needed, occasionally feels like things are slow to go down. Mild nausea when she is significantly constipated. No vomiting. Abdominal discomfort is left lower quadrant when she feels
like she needs to move her bowels it significant and radiates into her left back/flank. Last bowel movement was last Monday. She did attempt an enema and got a hard large ball of stool out that were brown without any overt blood.
At home she takes MiraLAX once daily, stool softeners once daily and Dulcolax 2 pills at night every other night. It does give her some cramping but usually it works and she has been moving her bowels daily to every other day until last week. She
has been taking intermittent narcotics but says she generally takes about once daily.
Past Medical History
Past Medical History: Other ( reflux, chronic constipation on chronic narcotics, microcytic anemia, hypertension, hyperlipidemia)
Past Surgical History: Cholecystectomy, Orthopedic and Other (RYGB 2005, cholecystectomy, abdominoplasty, bilateral TKA, right femur, right wrist fractures, , ovarian cystectomy, ventral hernia repair)
Social History
Tobacco: Former Smoker (Quit in 1985)
Alcohol: None (Rare)
Drug: None
Family History
Family History: CAD
Allergies / Home Medications
Allergy/AdvReac Type Severity Reaction Status Date / Time
amoxicillin Allergy HIVES, Verified 12/23/23 00:28
THROAT
SWELLING
ibuprofen Allergy nausea and Verified 12/23/23 00:28
stomach
pain
Iodinated Contrast Media Allergy HIVES, Verified 12/23/23 00:28
THROAT
SWELLING
iodine Allergy HIVES, Verified 12/23/23 00:28
THROAT
SWELLING
Penicillins Allergy HIVES, Verified 12/23/23 00:28
THROAT
SWELLING
shellfish derived Allergy HIVES, Verified 12/23/23 00:28
THROAT
SWELLING
�Medication �Instructions �Recorded
alprazolam 0.5 mg tablet 0.5 mg PO TIDPRN PRN Mental 07/09/21
Health/Anxiety
citalopram 40 mg tablet 40 mg PO QPM Mental Health/Anxiety 07/09/21
famotidine 40 mg tablet 40 mg PO DAILYPRN PRN gi/stomach 07/09/21
issues
polyethylene glycol 3350 17 gram 17 grams PO DAILY #30 packets 07/11/21
oral powder packet
docusate sodium 100 mg capsule 100 mg PO BIDPRN PRN constipation 09/02/23
oxycodone 15 mg tablet 15 mg PO Q6HPRN PRN moderate pain 09/05/23
trazodone 100 mg tablet 100 mg PO HS 09/05/23
cholecalciferol (vitamin D3) 25 25 mcg PO DAILY 10/13/23
mcg (1,000 unit) tablet (Vitamin
D3)
magnesium 1 tab PO DAILY 10/13/23
mecobalamin (vitamin B12) 1,000 1,000 mcg PO DAILY 10/13/23
mcg chewable tablet (B12 Active)
hydrochlorothiazide 25 mg tablet 25 mg PO DAILY 12/22/23
metoprolol tartrate 25 mg tablet 25 mg PO QPM 12/22/23
ondansetron 4 mg disintegrating 4 mg PO Q6HPRN PRN nausea/vomiting 12/22/23
tablet
tizanidine 2 mg tablet 2 mg PO BIDPRN PRN muscle spasms 12/22/23
Review of Systems
-
History Source: Patient
Constitutional: Reports Weight Loss
Respiratory: Reports No Symptoms
Cardiac: Reports No Symptoms
Vital Signs
Temp Pulse Resp BP Pulse Ox
98.3 F 54 18 128/66 98
12/23/23 08:00 12/23/23 08:00 12/23/23 08:00 12/23/23 08:00 12/23/23 08:00
Physical Exam
Exam
General: No Apparent Distress
HEENT: Other (Pale mucous membranes)
Respiratory: Clear
Cardiac: S1/S2
GI: Soft, Non Distended and Tender (Suprapubic and left lower quadrant)
Rectal: Other (No stool in the rectal vault that I can reach, dilated rectum)
Neuro: AO x 3
Psych: Calm
Results
WBC 2.7 10^3/uL (4.8-10.8) L 12/23/23 06:43
Hgb 6.9 g/dL (12.0-16.0) L* 12/23/23 06:43
Hct 23.7 % (37.0-47.0) L 10/05/24 06:43
MCV 65.9 fL (81.0-99.0) L 12/23/23 06:43
Plt Count 175 10^3/uL (130-400) 12/23/23 06:43
Absolute Neuts (auto) 2.1 10^3/uL (1.4-6.5) 12/22/23 18:57
Sodium 142 mmol/L (135-145) 12/23/23 06:44
Potassium 4.5 mmol/L (3.5-5.1) 12/23/23 06:44
Chloride 110 mmol/L (98-107) H 12/23/23 06:44
Carbon Dioxide 22 mmol/L (22-30) 12/23/23 06:44
BUN 18 mg/dl (7-17) H 12/23/23 06:44
Creatinine 0.9 mg/dL (0.6-1.0) 12/23/23 06:44
Calcium 8.9 mg/dl (8.4-10.2) 12/23/23 06:44
Total Bilirubin 0.7 mg/dl (0.2-1.3) 12/22/23 18:57
AST 22 U/L (14-36) 12/22/23 18:57
ALT 17 U/L (0-35) 12/22/23 18:57
Alkaline Phosphatase 79 U/L (38-126) 12/22/23 18:57
Lipase 83 U/L (23-300) 12/22/23 18:57
Diagnostic Image Results:
CT abdomen pelvis with oral only showing a large amount of stool in the right and transverse colon with mild to moderate distention of the transverse and right colon. Mid to distal descending is normal caliber. Rectum normal caliber.
Prior GI Procedures: 2018 rectal EUS was normal. No adenopathy. Intact anal sphincter, normal rectal wall with no wall thickening
EGD:
2018, EGD, [facility], small hiatal hernia otherwise normal appearance of Roberto-en-Y gastric bypass
May 2014, for abdominal pain, normal esophagus with a hiatal hernia. Evidence of Roberto-en-Y gastric bypass with a normal Roberto limb.
Colonoscopy:
August 2017 colonoscopy, good prep to the terminal ileum. 2 small cecal adenomas, left-sided diverticulosis otherwise normal
May 2014, [facility], fair prep to the cecum. Sigmoid descending diverticulosis, 6 mm ascending hyperplastic polyp, ascending lipoma
Assessment / Plan
-
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
anemia in the setting of history of Roberto-en-Y gastric bypass, not on oral iron who presents with left lower quadrant/left-sided abdominal pain and no bowel movements in 5 to [address] scan showing moderate to large amount of stool especially in
the right and transverse colon with mild to moderate gaseous distention of the transverse and mid descending.
# Significant constipation -patient is on chronic opiates
-- Has had longstanding issues and even admissions for struggle colitis in the past in 2021
-- On rectal exam today she has a dilated rectum with no significant stool that I can reach
-- Review of imaging shows dilation that is mild of her bowel from the descending and more proximal suggesting she has likely significant amount of stool somewhat blocking passage in the sigmoid or descending colon
-- Will attempt milk of molasses enema and MiraLAX from above, senna
-- Will attempt to clean her out once we get her moving with a magnesium citrate
-- Currently on ceftriaxone 1 g daily
-- Pending how she does may require a barium enema or a Gastrografin enema which could be both therapeutic and diagnostic
-- Patient needs an eventual full colonoscopy which was attempted twice last February but failed due to prep
-- Follows closely with outpatient and we will get her a sooner appt
# Iron deficiency anemia -no overt GI bleeding patient
- has a history of Roberto-en-Y gastric bypass and does not take any iron supplementation in the setting of her chronic constipation
- She was supposed to be set up for IV iron -will give her IV iron while inpatient agree with no oral in the setting of her constipation
-She has had 2 EGDs and colonoscopies 1 in 2014, 1 in 2017 both with no findings.
-- I reviewed multiple outpatient records including labs, prior imaging, records with her outpatient GI doctor. She has had iron deficiency anemia for years likely secondary to her Roberto-en-Y gastric bypass. However it has never been this severe.
It may be just longstanding in the setting of no iron supplementation
--2020 her hemoglobin was 11.1 with an MCV of 76, platelets 225, B12 512, folate 11, no ferritin at that time
-- Patient needs to be followed more closely for her iron deficiency anemia likely with intermittent IV iron infusions since she is intolerant to oral iron
Data Reviewed
-
Radiology: Image Personally Visualized and interpreted
CT Scan: Image Personally Visualized and interpreted
Old Records: Reviewed (Spent 45 minutes reviewing all of her information)
-
-
Thank you for consultation and allowing me to participate in the patient's care. Please call the [facility] physician during the after hours with any questions or concerns.
[2023-12-23] MEDS: GAVILAX 238 GM PO (10:41)
[2023-12-23] MEDS: STERILE WATER FOR INJECTION 10 ML IV (10:45)
[2023-12-23 12:18] LABS: Vitamin B12 245 pg/ml (239-931)
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
[2023-12-23] MEDS: CYANOCOBALAMIN 1000 MCG IM (14:53)
[2023-12-23] MEDS: FERRLECIT 110 MG IV (14:56)
[2023-12-23 16:00] VITALS: BP 165/67
[2023-12-23] MEDS: CELEXA 40 MG PO (17:49)
[2023-12-23] MEDS: LOVENOX 40 MG SC (17:49)
--- NOTE | 2023-12-23 19:48 | PTCARENOTE ---
Enema-MOM 500 mls given at 1600
[2023-12-23] MEDS: SENOKOT-S PO (20:58)
[2023-12-23] MEDS: DESYREL 100 MG PO (20:58)
[2023-12-23 23:00] VITALS: BP 165/80
[2023-12-24] MEDS: COMPAZINE 5 MG IV (04:03)
[2023-12-24 06:59] LABS: Blood Urea Nitrogen 12 mg/dl (7-17); Carbon Dioxide 21 mmol/L (22-30); Chloride 112 mmol/L (98-107); Estimated Creatinine Clearance 58 ml/min; Glucose 88 mg/dl (70-99); Potassium 4.5 mmol/L (3.5-5.1); Sodium 142 mmol/L (135-145); eGFR > 60.00
[2023-12-24 07:41] LABS: Hematocrit 28.2 % (37.0-47.0); Hemoglobin 8.3 g/dL (12.0-16.0); Mean Corp Hgb Conc. 29.4 g/dL (33.0-37.0); Mean Corpuscular Hgb 19.5 pg (27.0-31.0); Mean Corpuscular Volume 66.4 fL (81.0-99.0); Mean Platelet Volume 9.4 fL (7.4-10.4); Platelet Count 187 10^3/uL (130-400); Red Blood Cell Count 4.25 10^6/uL (4.20-5.40); Red Cell Dist. Width 19.9 % (11.5-14.5); White Blood Cell Count 2.9 10^3/uL (4.8-10.8)
[2023-12-24 08:24] VITALS: BP 174/79
[2023-12-24] MEDS: SENOKOT-S PO (09:18)
[2023-12-24] MEDS: PROTONIX IV 40 MG IV (09:19)
[2023-12-24] MEDS: NSS (PRESERVATIVE FREE) 10 ML IV (09:19)
[2023-12-24] MEDS: CYANOCOBALAMIN 1000 MCG IM (09:21)
[2023-12-24] MEDS: NSS 1000 IV (09:57)
[2023-12-24] MEDS: STERILE WATER FOR INJECTION 10 ML IV (10:01)
[2023-12-24] MEDS: ROCEPHIN 1000 MG IV (10:02)
[2023-12-24] MEDS: XANAX 0.5 MG PO (10:02)
--- NOTE | 2023-12-24 11:50 | W.PN.HOSP.TC ---
Today's Communication/Plan
-
dc
Assessment / Plan
Assessment / Plan
78yo F with chronic back pain on opioids, followed by spinal specialist, hxof hemorrhoids, single instance of afib, HLD, chronic constipation, Hx of gastric bypass with PASCUAL came with 1 week of constipation with initial hard stool. CT abd showed
large stool burden, had few large BM after increasing Miralax to BID. Found PASCUAL for which she was already followed by her GI doctor, planned for IV iron infusion. Also started on B12. Medically stable to d/c. Ucx grew mixed organism, reasonable to
complete 5 days of Cefuroxime as outpatient due to concern for dysuria symptoms. Hgb stable
A/P:
#Acute on chronic constipation
Gavilax
Senna/docusate
GI consult
XR abd to eval that contrast progressed
TSH and electrolytes WNL
#symptomatic PASCUAL
#chronic leukopenia
#Hx of gastric bypass
supect malabsorption
Might benefit from outpatient [facility]
patient had Rx for outpatient iron IV infusion by GI, but did not do it yet
IV iron
Transfuse to keep Hgb>7 as patient feeling fatigue and Hgb 6.9 - 1 unit PRBC on 12/23/23
#UTI with dysuria
CT without hydronephrosis
Ceftriaxone (tolerated dose in ED)
follow Ucx
#Chronic back pain
#DJD
no worsening symptoms over past week, no recent back trauma
cont home meds, cont to folow in [facility] ecommerce marketing specialist office
no urinary retention or incontinence reported
#Chronic CBD dilation 2/2 Hx of cholecystectomy
No f/u advised
#Essential HTN
cont home meds
DVt ppx on Lovenox
Full code
I have spent at least 58min reviewing the chart, test results, communication with consultants and direct patient care
Anticipated Discharge: Today
Subjective/Interval History
-
Date of Service: December 24, 2023
Objective Data
-
Labs:
Laboratory Results
12/24/23
06:23
WBC 2.9 L
Hgb 8.3 L D
Hct 28.2 L
Plt Count 187
Sodium 142
Potassium 4.5
Chloride 112 H
Carbon Dioxide 21 L
BUN 12
Creatinine 0.8
Glucose 88
Calcium 9.0
Vital Signs:
Vital Signs
Temp Pulse Resp BP Pulse Ox
98.3 F 58 16 174/79 96
12/24/23 08:24 12/24/23 08:24 12/24/23 08:24 12/24/23 08:24 12/24/23 08:24
I&O
12/23/23 12/24/23 12/25/23
06:59 06:59 06:59
Intake Total 470 / 470 860 / 860 310 / 310
Balance 470 / 470 860 / 860 310 / 310
Review of Systems
-
History Source: Patient
All other systems: Reviewed and negative
Physical Exam
-
General: No Apparent Distress
HEENT: Normocephalic
Cardiac: Regular Rhythm
GI: Soft, Nontender and Nondistended
Neuro: Awake, Alert, Oriented and AO x 3
Psych: Calm
--- NOTE | 2023-12-24 11:54 | W.DCSUMMARY ---
Discharge Summary
Discharge Data
Date of Admission: 12/23/23
Date of Discharge: 12/24/23
-
Pending Results: No
Hospital Course
78yo F with chronic back pain on opioids, followed by spinal specialist, hxof hemorrhoids, single instance of afib, HLD, chronic constipation, Hx of gastric bypass with PASCUAL came with 1 week of constipation with initial hard stool. CT abd showed
large stool burden, had few large BM after increasing Miralax to BID. Found PASCUAL for which she was already followed by her GI doctor, planned for IV iron infusion. Also started on B12. Medically stable to d/c. Ucx grew mixed organism, reasonable to
complete 5 days of Cefuroxime as outpatient due to concern for dysuria symptoms. Hgb stable
I have spent at least 38min discharging the patient
Patient was managed for:
#Acute on chronic constipation
#symptomatic PASCUAL
#chronic leukopenia
#Hx of gastric bypass
#UTI with dysuria
#Chronic back pain
#DJD
#Chronic CBD dilation 2/2 Hx of cholecystectomy
#Essential HTN
Discharge Plan
-
Patient Disposition: Home (Routine Discharge)
Discharge Diagnosis/Procedures: constipation
Diet: Regular
Activity: As tolerated
Driving Restrictions: As prior to admission
Activity Restrictions/Additional Instructions:
Schedule close follow up with your [facility] specialist for further iron infusions
Referrals:
Delio Goldberg DO [Family Provider] - in one week (repeat CBC for leukopenia)
Prescriptions:
New
cyanocobalamin (vitamin B-12) 1,000 mcg capsule
1,000 mcg PO DAILY Qty: 30 0RF
polyethylene glycol 3350 [HealthyLax] 17 gram Powder In Packet
17 g PO BIDPRN PRN (Reason: Constipation) Qty: 60 0RF
cefuroxime axetil 500 mg tablet
500 mg PO Q12H Qty: 10 0RF
sennosides-docusate sodium 8.6-50 mg Tablet
1 tab PO BID Qty: 60 0RF
Continued
citalopram 40 MG tablet
40 mg PO QPM
famotidine 40 MG tablet
40 mg PO DAILYPRN PRN (Reason: gi/stomach issues)
alprazolam 0.5 MG tablet
0.5 mg PO TIDPRN PRN (Reason: Mental Health/Anxiety)
Patient Comments:
12/22/2023: last filled 10/16/23, 270 tabs for 90 days from [facility]
polyethylene glycol 3350 17 GRAMS powder in packet
17 grams PO DAILY Qty: 30 0RF
oxycodone 15 mg Tablet
15 mg PO Q6HPRN PRN (Reason: moderate pain)
Patient Comments:
12/22/2023: last filled 12/15/23, 120 tabs for 30 days from [facility]
trazodone 100 mg Tablet
100 mg PO HS
cholecalciferol (vitamin D3) [Vitamin D3] 25 mcg (1,000 unit) Tablet
25 mcg PO DAILY
mecobalamin (vitamin B12) [B12 Active] 1,000 mcg Tablet,Chewable
1,000 mcg PO DAILY
magnesium
1 tab PO DAILY
tizanidine 2 mg tablet
2 mg PO BIDPRN PRN (Reason: muscle spasms)
hydrochlorothiazide 25 mg tablet
25 mg PO DAILY
ondansetron 4 mg tablet,disintegrating
4 mg PO Q6HPRN PRN (Reason: nausea/vomiting)
metoprolol tartrate 25 MG tablet
25 mg PO QPM
Discontinued
docusate sodium 100 MG capsule
100 mg PO BIDPRN PRN (Reason: constipation)
Discharge Orders:
Discharge Patient (As Directed); Ordered 12/24/23
Ordered By: Dano Mayo
Discharge Date and Time
Print Language: YAKUT
--- NOTE | 2023-12-24 11:55 | W.PN.GI.CBS2 ---
Today's Communication / Plan
-
change senna to Amitiza 24mcg BID
GI signing off and will have close outpatient follow up
Assessment / Plan
-
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
anemia in the setting of history of Roberto-en-Y gastric bypass, not on oral iron who presents with left lower quadrant/left-sided abdominal pain and no bowel movements in 5 [address] scan showing moderate to large amount of stool especially in
the right and transverse colon with mild to moderate gaseous distention of the transverse and mid descending.
# Significant constipation -patient is on chronic opiates
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
--Started patient on Amitiza which she has tolerated well in the past, stopped senna, okay to continue MiraLAX
--Patient is feeling better now after moving her bowels after the enema. Will need to continue this regimen outpatient and we will get her quicker follow-up with Dr. Russo
-- Patient needs an eventual full colonoscopy which was attempted twice last February but failed due to prep
-- Follows closely with outpatient and we will get her a sooner appt
# Iron deficiency anemia -no overt GI bleeding patient
- has a history of Roberto-en-Y gastric bypass and does not take any iron supplementation in the setting of her chronic constipation
- She was supposed to be set up for IV iron -will give her IV iron while inpatient agree with no oral in the setting of her constipation
-She has had 2 EGDs and colonoscopies 1 in 2014, 1 in 2018 both with no findings.
-- I reviewed multiple outpatient records including labs, prior imaging, records with her outpatient GI doctor. She has had iron deficiency anemia for years likely secondary to her Roberto-en-Y gastric bypass. However it has never been this severe.
It may be just longstanding in the setting of no iron supplementation
--2020 her hemoglobin was 11.1 with an MCV of 76, platelets 225, B12 512, folate 11, no ferritin at that time - now getting B12 IM while here
-- Patient needs to be followed more closely for her iron deficiency anemia likely with intermittent IV iron infusions since she is intolerant to oral iron - would benefit from hematology to help coordinate since this will be a manager intermediate issue.
Ok to be discharged from a GI perspective and my office will call her to get set up for an earlier outpatient follow up.
Please send her with an Amitiza 24mcg BID with food script upon discharge
Subjective
Subjective
Date of Service: December 24, 2023
Patient was significant bowel movement after the enema yesterday. We discussed outpatient bowel regimen and she states that she did do well in the past with Amitiza. Reason for Dulcolax on intermittent basis was it made her uncomfortable.
She denies any significant abdominal pain today.
Objective
Data Reviewed
Laboratory Data:
Laboratory Results
12/24/23 06:23
12/24/23 06:23
Laboratory Results
Magnesium 1.8 mg/dl (1.6-2.3) 12/23/23 06:44
Total Bilirubin 0.7 mg/dl (0.2-1.3) 12/22/23 18:57
AST 22 U/L (14-36) 12/22/23 18:57
ALT 17 U/L (0-35) 12/22/23 18:57
Alkaline Phosphatase 79 U/L (38-126) 12/22/23 18:57
Lipase 83 U/L (23-300) 12/22/23 18:57
Vital Signs and I&O:
Vital Signs
Temp Pulse Resp BP Pulse Ox
98.3 F 58 16 174/79 96
12/24/23 08:24 12/24/23 08:24 12/24/23 08:24 12/24/23 08:12/24/23 08:24
I&O
12/23/23 12/24/23 12/25/23
06:59 06:59 06:59
Intake Total 470 / 470 860 / 860 310 / 310
Balance 470 / 470 860 / 860 310 / 310
Physical Exam
Physical Exam
HEENT: Anicteric
GI: Soft, Non Distended and Non Tender
Neuro: Non Focal
--- NOTE | 2023-12-24 12:35 | CM ---
Met with patient at bedside; explained that Case Manger contacted [facility] via phone and spoke w/ a complex case manager yesterday after our discussion.
Explained that the complex case manager I spoke with confirmed that patient previously filed a claim and that it was denied; and also stated that she would submit a report and have someone from the agency would contact her nicko; via patient's cell phone.
LUIS ANGEL spoke with [employer] [facility] via phone to inform her of patient's discharge; she stated that a case briefer from the agency will call patient.
Plan: patient stated that she is comfortable being discharged to home today and that her brother would transport her home.
[2023-12-24 14:28] VITALS: BP 90/69
== END 2023-12-24 14:48 | disposition home or self-care (01) | DRG 392 ==
LOC: 3 WEST ACU 08:48
PROVIDERS: Nurse Practitioner; ADMITTING PHYSICIAN Hospitalist; ATTENDING PHYSICIAN Internal Medicine; CONSULT PHYSICIAN Internal Medicine; EMERGENCY PHYSICIAN Student in an Organized Health Care Education/Training Program; FAMILY PHYSICIAN Family Medicine
PROC: 30233N1 Transfusion of Nonautologous Red Blood Cells into Peripheral Vein, Percutaneous Approach (ICD-10-PCS; 2023-12-23)
DX: K59.09 Other constipation (principal); N39.0 Urinary tract infection, site not specified; F11.20 Opioid dependence, uncomplicated; K91.2 Postsurgical malabsorption, not elsewhere classified; M54.9 Dorsalgia, unspecified; R53.83 Other fatigue; D50.9 Iron deficiency anemia, unspecified; R39.15 Urgency of urination; E78.00 Pure hypercholesterolemia, unspecified; I10 Essential (primary) hypertension; K21.9 Gastro-esophageal reflux disease without esophagitis; G89.4 Chronic pain syndrome; F32.A Depression, unspecified; E66.9 Obesity, unspecified; M19.90 Unspecified osteoarthritis, unspecified site; I48.91 Unspecified atrial fibrillation; D72.819 Decreased white blood cell count, unspecified; F41.9 Anxiety disorder, unspecified; Z96.653 Presence of artificial knee joint, bilateral; Z98.84 Bariatric surgery status; Z68.29 Body mass index [BMI] 29.0-29.9, adult; Z87.891 Personal history of nicotine dependence; Z88.6 Allergy status to analgesic agent; Z91.041 Radiographic dye allergy status; Z88.0 Allergy status to penicillin; Z91.013 Allergy to seafood; Z86.010 Personal history of colon polyps; Z87.19 Personal history of other diseases of the digestive system; Z90.49 Acquired absence of other specified parts of digestive tract
CPT/HCPCS: 74018; 74176; 80048; 80053; 81003; 81015; 82607; 82746; 83540; 83550; 83615; 83690; 83735; 84443; 85025; 85027; 85045; 86850; 86900; 86901; 86920; 87086; 96361; 96374; 96375; 99285; J2916; P9058

== ENCOUNTER → 2024-05-06 12:07 | Outpatient (REF) | payer OTHER, SELFPAY | LOC: HWRAD 12:07 | PROVIDERS: ATTENDING PHYSICIAN Otolaryngology; FAMILY PHYSICIAN Family Medicine | DX: E04.1 Nontoxic single thyroid nodule (principal) | CPT/HCPCS: 76536 ==

== ENCOUNTER → 2024-06-19 10:05 | Outpatient (REF) | payer OTHER, SELFPAY ==
[2024-06-19 10:35] VITALS: BP 164/76; BP_SYST 52
[2024-06-19 11:35] VITALS: BP 164/76
== END ==
LOC: RADI 10:05
PROVIDERS: ATTENDING PHYSICIAN Otolaryngology; FAMILY PHYSICIAN Family Medicine
DX: E04.1 Nontoxic single thyroid nodule (principal)
CPT/HCPCS: 88173; 10005

== ENCOUNTER 2024-07-10 06:26 | Day surgery (SDC) | payer OTHER, SELFPAY | END 2024-07-10 15:57 | disposition home or self-care (01) | LOC: GI 06:26 | PROVIDERS: ATTENDING PHYSICIAN Internal Medicine Gastroenterology | DX: D50.9 Iron deficiency anemia, unspecified (principal); R12 Heartburn; Q39.9 Congenital malformation of esophagus, unspecified; Z98.84 Bariatric surgery status | CPT/HCPCS: 43235 ==

== ENCOUNTER → 2024-07-15 13:14 | Outpatient (REF) | payer OTHER, SELFPAY ==
[2024-07-15 09:31] LABS: % Basophils 0.9 % (0-2); % Eosinophils 2.9 % (0-6); % Immature Granulocytes 0.3 % (0-0.5); % Lymphocytes 31.7 % (20.5-51.1); % Monocytes 12.1 % (1.7-9.3); % Neutrophils 52.1 % (42.2-75.2); Absolute Eosinophils 0.1 10^3/uL (0-0.7); Absolute Lymphocytes 1.1 10^3/uL (1.2-3.4); Absolute Monocytes 0.4 10^3/uL (0.1-0.6); Absolute Neutrophils 1.8 10^3/uL (1.4-6.5); Hematocrit 28.2 % (37.0-47.0); Hemoglobin 8.2 g/dL (12.0-16.0); Mean Corp Hgb Conc. 29.1 g/dL (33.0-37.0); Mean Corpuscular Hgb 20.1 pg (27.0-31.0); Mean Corpuscular Volume 69.1 fL (81.0-99.0); Mean Platelet Volume 8.9 fL (7.4-10.4); Platelet Count 182 10^3/uL (130-400); Red Blood Cell Count 4.08 10^6/uL (4.20-5.40); Red Cell Dist. Width 19.1 % (11.5-14.5); White Blood Cell Count 3.5 10^3/uL (4.8-10.8)
== END ==
LOC: OIDL 13:14
PROVIDERS: ATTENDING PHYSICIAN Internal Medicine Hematology & Oncology
DX: D50.9 Iron deficiency anemia, unspecified (principal)
CPT/HCPCS: 85025

== ENCOUNTER → 2024-07-29 10:31 | Outpatient (REF) | payer OTHER, SELFPAY ==
[2024-07-29 11:11] LABS: % Basophils 0.8 % (0-2); % Eosinophils 3.1 % (0-6); % Immature Granulocytes 0.3 % (0-0.5); % Monocytes 10.6 % (1.7-9.3); % Neutrophils 55.2 % (42.2-75.2); Absolute Eosinophils 0.1 10^3/uL (0-0.7); Absolute Lymphocytes 1.2 10^3/uL (1.2-3.4); Absolute Monocytes 0.4 10^3/uL (0.1-0.6); Absolute Neutrophils 2.1 10^3/uL (1.4-6.5); Hematocrit 31.5 % (37.0-47.0); Hemoglobin 9.3 g/dL (12.0-16.0); Mean Corp Hgb Conc. 29.5 g/dL (33.0-37.0); Mean Corpuscular Volume 71.3 fL (81.0-99.0); Mean Platelet Volume 9.2 fL (7.4-10.4); Platelet Count 199 10^3/uL (130-400); Red Blood Cell Count 4.42 10^6/uL (4.20-5.40); Red Cell Dist. Width 21.1 % (11.5-14.5); White Blood Cell Count 3.9 10^3/uL (4.8-10.8)
== END ==
LOC: OIDL 10:31
PROVIDERS: ATTENDING PHYSICIAN Nurse Practitioner Adult Health
DX: D50.9 Iron deficiency anemia, unspecified (principal)
CPT/HCPCS: 85025

== ENCOUNTER → 2025-03-18 07:49 | Outpatient (REF) | payer OTHER, SELFPAY | LOC: HWRAD 07:49 | PROVIDERS: ATTENDING PHYSICIAN Otolaryngology; FAMILY PHYSICIAN Family Medicine | DX: E04.1 Nontoxic single thyroid nodule (principal) | CPT/HCPCS: 76536 ==